=== PATIENT | male | born 1975 | race Caucasian/White ===

== ENCOUNTER 2018-03-28 09:13 | Inpatient (IN) | payer OTHER ==
[2018-03-28 09:33] VITALS: BMI 48.7
--- NOTE | 2018-03-28 10:20 | HP ---
COWS - Scale Resting Pulse: 1= [place] 81-100 Sweatin= Chills/Flushing Restless Observation: 3= Extraneous Movement Pupil Size: 0= Normal to Room Light Bone or Joint Aches: 1= Mild Discomfort Runny Nose/ Eye Tearin= Nasal Congestion GI Upset > 30mins: 1= Stomach Cramp Tremor Observation: 2= Slight Tremor Visible Yawning Observation: 1= 1-2x During Session Anxiety or Irritability: 2=Irritable/Anxious Goose Flesh Skin: 0=Smooth Skin COWS Score: 13 Admission ROS BHS - HPI Chief Complaint: I'm sick, I'm feeling crazy, I feel like I'm burning up inside, it's from the drugs, I need help, I really want to change, I was doing good on the Vivitrol Allergies/Adverse Reactions: Allergies Allergy/AdvReac Type Severity Reaction Status Date / Time No Known Allergies Allergy Verified 03/28/18 10:13 History of Present Illness: 42 yo gentleman here for detox from opiates - gives a long history of opiate use - tried methadone (5 years ago) and suboxone program (three years ago) but did not like them. Was started on Vivitrol early this year and was doing well on it - had a job - but there were scheduling issues and he missed a dose, relapsed and overdosed. He wishes to go back to Vivitrol after detox and rehab. Exam Limitations: Clinical Condition - Ebola screening Have you traveled outside of the country in the last 21 days: No (N) Have you had contact with anyone from an Ebola affected area: No Have you been sick,other than usual withdrawal symptoms: No Do you have a fever: No - Review of Systems Constitutional: Loss of Appetite, Changes in sleep, Weakness EENT: reports: Blurred Vision, Nose Congestion Respiratory: reports: SOB with Exertion, Wheezing Cardiac: reports: No Symptoms Reported GI: reports: Nausea, Poor Appetite : reports: No Symptoms Reported Musculoskeletal: reports: Back Pain, Muscle Pain Integumentary: reports: No Symptoms Reported Neuro: reports: Headache, Tremors Endocrine: reports: No Symptoms Reported Hematology: reports: No Symptoms Reported Psychiatric: reports: Judgement Intact, Mood/Affect Appropiate, Anxious Other Systems: Reviewed and Negative Patient History - Patient Medical History Hx Asthma: Yes Hx Chronic Obstructive Pulmonary Disease (COPD): No Hx Cancer: No Hx Cardiac Disorders: No Hx Congestive Heart Failure: No Hx Hypertension: Yes (no meds ) Hx Hypercholesterolemia: No HX Cerebrovascular Accident: No Hx Seizures: No Hx Diabetes: Yes (prediaabetes) Hx Gastrointestinal Disorders: No Hx Liver Disease: No Hx Genitourinary Disorders: No Hx Sexually Transmitted Disorders: No Hx Renal Disease (ESRD): No Hx Thyroid Disease: No Hx Human Immunodeficiency Virus (HIV): No Hx Hepatitis C: No Hx Depression: Yes (PTSD, hospitalized a year ago [facility]) Hx Suicide Attempt: No Hx Bipolar Disorder: Yes Hx Schizophrenia: No - Patient Surgical History Past Surgical History: Yes Hx Cataract Extraction: Yes (2013 bilateral) Hx Appendectomy: Yes (as child) - PPD History Previous Implant?: Yes Documented Results: Negative w/o proof Implanted On Prior [facility] Admission?: No PPD to be Administered?: Yes - Reproductive History Patient is a Female of Child Bearing Age (11 -55 yrs old): No (male) - Smoking Cessation Smoking history: Current some day smoker Have you smoked in the past 12 months: Yes Aproximately how many cigarettes per day: 5 Initiated information on smoking cessation: Yes 'Breaking Loose' booklet given: 03/28/18 (give on floor) - Substance & Tx. History Hx Alcohol Use: No Hx Substance Use: Yes Substance Use Type: Heroin Hx Substance Use Treatment: Yes (vivitrol, years ago on methadone, yrs ago on suboxone program, detox, rehab) - Substances Abused heroin Route: Inhalation Frequency: Daily Amount used: 10 bags Age of first use: 17 Date of Last Use: 03/27/18 Family Disease History - Family Disease History Family Disease History: [place]: Mother (, cancer ovarian), Other: Father ( , killed, etoh/drugs), Mother, Brother (two - living - ), Sister (six - one with asthma), Son (one age 20 - healthy) Admission Physical Exam BHS - Vital Signs Vital Signs: Vital Signs - 24 hr 03/28/18 09:31 Temperature 97.9 F Pulse Rate 84 Respiratory 19 Rate Blood Pressure 143/95 - Physical General Appearance: Yes: Nourished, Appropriately Dressed, Mild Distress, Obese , Tremorous, Anxious HEENTM: Yes: EOMI, Hearing grossly Normal, Normocephalic, Normal Voice, Pharynx Normal Respiratory: Yes: No Respiratory Distress, Wheezing Neck: Yes: No masses,lesions,Nodules, Supple Breast: Yes: Breast Exam Deferred Cardiology: Yes: Regular Rhythm, Regular Rate Abdominal: Yes: Soft, Protuberent Genitourinary: Yes: Within Normal Limits Back: Yes: Normal Inspection Musculoskeletal: Yes: full range of Motion, Gait Steady, Back pain, Muscle Pain Extremities: Yes: Within Normal Limits Neurological: Yes: Alert, Motor Strength 5/5, Normal Mood/Affect, Normal Response Integumentary: Yes: Normal Color, Warm Lymphatic: Yes: Within Normal Limits - Addiitonal Findings: QTG=384 - Diagnostic (1) Opioid dependence with withdrawal Current Visit: Yes Status: Chronic (2) Morbid obesity with BMI of 45.0-49.9, adult Current Visit: Yes Status: Chronic (3) Asthma Current Visit: Yes Status: Chronic Qualifiers: Asthma severity: moderate Asthma persistence: persistent Asthma complication type: uncomplicated Qualified Code(s): J45.40 - Moderate persistent asthma, uncomplicated (4) Prediabetes Current Visit: Yes Status: Chronic Cleared for Admission [facility] - Detox or Rehab [facility] Level of Care: Medically Managed Detox Regimen/Protocol: Methadone [facility] Breath Alcohol Content Breath Alcohol Content: 0 Urine Drug Screen - Results Drug Screen Negative: No Urine Drug Screen Results: OPI-Opiates
[2018-03-28] MEDS ORDERED: MAGNESIUM HYDROX 2400MG/30ML ORAL SUSPENSION 30 ML CUP PO PRN (10:28)
[2018-03-28] MEDS ORDERED: P-EPHED 60MG/TRIPROLIDI 2.5MG TABLET PO PRN (10:28)
[2018-03-28] MEDS ORDERED: MAGNESIUM CITRATE 300 ML BOTTLE PO PRN (10:28)
[2018-03-28] MEDS ORDERED: guaiFENesin/D-METHORPHAN HB 10 ML UNIT-DOSE CUPS PO PRN (10:28)
[2018-03-28] MEDS ORDERED: ACETAMINOPHEN 325 MG TABLET (FP) PO PRN (10:28)
[2018-03-28] MEDS ORDERED: IBUPROFEN 400 MG TABLET (FP) PO PRN (10:28)
[2018-03-28] MEDS ORDERED: MAG HYDROX/AL HYDROX/SIMETH 30 ML UNIT-DOSE CUP PO PRN (10:28)
[2018-03-28] MEDS ORDERED: MENTHOL/PHENOL 1 EACH UD MM PRN (10:28)
[2018-03-28] MEDS ORDERED: METHADONE HCL 10 MG TABLET (FOR DETOX USE ONLY) PO ONE ×2 (12:00→23:00)
[2018-03-28] MEDS: diazePAM 5 MG TABLET PO PRN ×2 (12:02→21:31)
[2018-03-28] MEDS: BUDESONIDE/FORMETEROL FUMARATE 160/4.5 mcg INHALER IH SCH ×2 (12:05→21:36)
[2018-03-28] MEDS: THIAMINE HCL 100 MG TABLET (FP) PO SCH (21:31)
[2018-03-28] MEDS: ALBUTEROL SO4 8 GM HFA INHALER IH PRN (21:35)
[2018-03-28] MEDS ORDERED: MELATONIN 5 MG TABLETS PO PRN (22:00)
[2018-03-28] MEDS: MONTELUKAST NA 10 MG TABLET PO SCH (22:06)
[2018-03-28] MEDS: metFORMIN HCL 500 MG TABLET (FP) PO SCH (22:07)
[2018-03-28 22:42] LABS: URINE APPEARANCE CLEAR; URINE BILIRUBIN NEGATIVE (<2.0 mg/dL); URINE COLOR LTYELLOW; URINE GLUCOSE (UA) NEGATIVE (NEGATIVE); URINE KETONE NEGATIVE (NEGATIVE); URINE LEUK ESTERASE NEGATIVE (NEGATIVE); URINE NITRITE NEGATIVE (NEGATIVE); URINE PROTEIN NEGATIVE (NEGATIVE); URINE UROBILINOGEN NEGATIVE mg/dL (0.2-1.0)
[2018-03-29] MEDS ORDERED: METHADONE HCL 10 MG TABLET (FOR DETOX USE ONLY) PO ONE (10:00)
[2018-03-29] MEDS ORDERED: SODIUM CHLORIDE NASAL SPRAY 44 ML BOTTLE NS PRN (10:01)
[2018-03-29] MEDS ORDERED: MINERAL OIL/PETROLAT/WATER TOPICAL CREAM 113 GM JAR TP PRN (10:01)
--- NOTE | 2018-03-29 10:03 | PN ---
S COWS - Scale Resting Pulse: 0= [place] 80 or Below Sweatin= Chills/Flushing Restless Observation: 1= Difficult to Sit Still Pupil Size: 1= Pupils >than Normal Bone or Joint Aches: 1= Mild Discomfort Runny Nose/ Eye Tearin= Nasal Congestion GI Upset > 30mins: 2= Nausea/Diarrhea Tremor Observation of Outstretched Hands: 1= Tremor [place], Not Seen Yawning Observation: 1= 1-2x During Session Anxiety or Irritability: 1=Feels Anxious/Irritable Goose Flesh Skin: 3=Piloerection COWS Score: 13 BHS Progress Note (SOAP) Subjective: sweat tremor anxiety restlessness joints pain congested nasal passage diarrhea Objective: 03/29/18 10:04 Vital Signs Temperature 98.1 F 03/29/18 09:29 Pulse Rate 57 L 03/29/18 09:29 Respiratory Rate 18 03/29/18 09:29 Blood Pressure 134/98 03/29/18 09:29 O2 Sat by Pulse Oximetry (%) Laboratory Last Values POC Glucometer 150 UNITS (80-120) 03/28/18 11:28 Urine Color Ltyellow 03/28/18 22:30 Urine Appearance Clear 03/28/18 22:30 Urine pH 5.0 (5.0-8.0) 03/28/18 22:30 Ur Specific [place] 1.016 (1.010-1.035) 03/28/18 22:30 Urine Protein Negative (NEGATIVE) 03/28/18 22:30 Urine Glucose (UA) Negative (NEGATIVE) 03/28/18 22:30 Urine Ketones Negative (NEGATIVE) 03/28/18 22:30 Urine Blood Negative (NEGATIVE) 03/28/18 22:30 Urine Nitrite Negative (NEGATIVE) 03/28/18 22:30 Urine Bilirubin Negative (<2.0 mg/dL) 03/28/18 22:30 Urine Urobilinogen Negative mg/dL (0.2-1.0) 03/28/18 22:30 Ur Leukocyte Esterase Negative (NEGATIVE) 03/28/18 22:30 lab noted Assessment: 03/29/18 10:04 withdrawal sx Plan: continue detox
[2018-03-29] MEDS ORDERED: ONDANSETRON *ODT* 4 MG TABLET SL ONE (10:05)
[2018-03-29 10:29] LABS: HEMATOCRIT 36.6 % (35.4-49); HEMOGLOBIN 11.3 GM/dL (11.7-16.9); MCH 24.9 pg (25.7-33.7); MCHC 30.9 g/dl (32.0-35.9); MEAN CELL VOLUME 80.7 fl (80-96); MEAN PLT VOLUME 10.2 fl (7.5-11.1); PLATELET COUNT 164 K/MM3 (134-434); RBC 4.53 M/mm3 (4.00-5.60); RDW 16.2 % (11.9-15.9); WHITE BLOOD COUNT 11.9 K/mm3 (4.0-10.0)
[2018-03-29] MEDS: metFORMIN HCL 500 MG TABLET (FP) PO SCH ×2 (10:44→17:10)
[2018-03-29] MEDS: diazePAM 5 MG TABLET PO PRN ×2 (10:44→21:50)
[2018-03-29] MEDS: BUDESONIDE/FORMETEROL FUMARATE 160/4.5 mcg INHALER IH SCH ×2 (10:45→22:12)
[2018-03-29] MEDS: PRENATAL VITAMINS W/ FOLIC ACID TABLET (FP) PO SCH (10:45)
[2018-03-29 10:51] LABS: ALBUMIN 3.7 g/dl (3.4-5.0); ALK PHOS 70 U/L (45-117); ANION GAP 13 MMOL/L (8-16); BILIRUBIN,TOTAL 0.4 mg/dL (0.2-1); BLOOD UREA NITROGEN 17 mg/dL (7-18); CHLORIDE 104 mmol/L (98-107); CO2 23 mmol/L (21-32); CREATININE 1.9 mg/dL (0.55-1.3); GLUCOSE,RANDOM 140 mg/dL (74-106); POTASSIUM 4.4 mmol/L (3.5-5.1); SGOT/AST 19 U/L (15-37); SGPT/ALT 23 U/L (13-61); SODIUM 139 mmol/L (136-145); TOT PROT 7.1 g/dl (6.4-8.2)
--- NOTE | 2018-03-29 13:47 | EKG ---
Test Reason : Blood Pressure : / mmHG Vent. Rate : 069 BPM Atrial Rate : 069 BPM P-R Int : 152 ms QRS Dur : 092 ms QT Int : 416 ms P-R-T Axes : 039 007 -03 degrees QTc Int : 445 ms NORMAL SINUS RHYTHM WITH SINUS ARRHYTHMIA NORMAL ECG NO PREVIOUS ECGS AVAILABLE Confirmed by EDUARDO VEGA MD ([id number]) on 03/29/2018 1:47:08 PM Referred By: Confirmed By:EDUARDO VEGA MD
[2018-03-29] MEDS: LOPERAMIDE HCL 2 MG CAPSULE PO PRN (20:20)
[2018-03-29] MEDS ORDERED: TRIMETHOBENZAMIDE HCL 200MG/2ML INJ IM PRN (21:24)
[2018-03-29] MEDS: MONTELUKAST NA 10 MG TABLET PO SCH (22:12)
[2018-03-29] MEDS: THIAMINE HCL 100 MG TABLET (FP) PO SCH (22:12)
[2018-03-30] MEDS: metFORMIN HCL 500 MG TABLET (FP) PO SCH ×2 (08:01→17:36)
[2018-03-30] MEDS: LOPERAMIDE HCL 2 MG CAPSULE PO PRN (08:01)
[2018-03-30] MEDS ORDERED: METHADONE HCL 5 MG TABLET (FOR DETOX USE ONLY) PO ONE (10:00)
[2018-03-30] MEDS: PRENATAL VITAMINS W/ FOLIC ACID TABLET (FP) PO SCH (10:15)
[2018-03-30] MEDS: BUDESONIDE/FORMETEROL FUMARATE 160/4.5 mcg INHALER IH SCH ×2 (10:16→23:25)
--- NOTE | 2018-03-30 11:32 | PN ---
BHS COWS - Scale Resting Pulse: 0= [place] 80 or Below Sweatin=Flushed/Facial Moisture Restless Observation: 1= Difficult to Sit Still Pupil Size: 0= Normal to Room Light Bone or Joint Aches: 2= Severe Diffuse Aches Runny Nose/ Eye Tearin= None GI Upset > 30mins: 3= Vomiting/Diarrhea Tremor Observation of Outstretched Hands: 2= Slight Tremor Visible Yawning Observation: 0= None Anxiety or Irritability: 2=Irritable/Anxious Goose Flesh Skin: 0=Smooth Skin COWS Score: 12 S Progress Note (SOAP) Subjective: PATIENT C/O VOMITING/DIARRHEA, ANXIETY, RESTLESSNESS, SHAKES AND SWEATING. Objective: 03/30/18 11:28 Vital Signs Temperature 97.7 F 03/30/18 09:09 Pulse Rate 59 L 03/30/18 09:09 Respiratory Rate 18 03/30/18 09:09 Blood Pressure 127/72 03/30/18 09:09 O2 Sat by Pulse Oximetry (%) Laboratory Tests 03/28/18 03/28/18 03/29/18 11:28 22:30 05:35 WBC 11.9 H RBC 4.53 Hgb 11.3 L Hct 36.6 MCV 80.7 MCH 24.9 L MCHC 30.9 L RDW 16.2 H Plt Count 164 MPV 10.2 Sodium Potassium Chloride Carbon Dioxide Anion Gap BUN Creatinine Creat Clearance w eGFR POC Glucometer 150 Random Glucose Calcium Total Bilirubin AST ALT Alkaline Phosphatase Total Protein Albumin Urine Color Ltyellow Urine Appearance Clear Urine pH 5.0 Ur Specific [place] 1.016 Urine Protein Negative Urine Glucose (UA) Negative Urine Ketones Negative Urine Blood Negative Urine Nitrite Negative Urine Bilirubin Negative Urine Urobilinogen Negative Ur Leukocyte Esterase Negative RPR Titer 03/29/18 03/29/18 03/30/18 05:35 05:35 07:50 WBC RBC Hgb Hct MCV MCH MCHC RDW Plt Count MPV Sodium 139 Potassium 4.4 Chloride 104 Carbon Dioxide 23 Anion Gap 13 BUN 17 Creatinine 1.9 H Creat Clearance w eGFR 38.88 POC Glucometer 90 Random Glucose 140 H Calcium 8.0 L Total Bilirubin 0.4 AST 19 ALT 23 Alkaline Phosphatase 70 Total Protein 7.1 Albumin 3.7 Urine Color Urine Appearance Urine pH Ur Specific [place] Urine Protein Urine Glucose (UA) Urine Ketones Urine Blood Urine Nitrite Urine Bilirubin Urine Urobilinogen Ur Leukocyte Esterase RPR Titer Nonreactive PE: SKIN WARM, + FACIAL MOISTURE ALERT AND ORIENTED X 3 ANXIOUS, RESTLESS EXT FULL ROM, + TREMORS AMB AD ANIKA Assessment: 03/30/18 11:29 WITHDRAWAL SX Plan: CONTINUE DETOX ENCOURAGE ORAL FLUIDS TIGAN IM PRN FOR VOMITING IMMODIUM PRN FOR DIARRHEA CONTINUE TO MONITOR CLINICALLY
[2018-03-30] MEDS: MONTELUKAST NA 10 MG TABLET PO SCH (23:25)
[2018-03-30] MEDS: THIAMINE HCL 100 MG TABLET (FP) PO SCH (23:25)
[2018-03-31] MEDS: metFORMIN HCL 500 MG TABLET (FP) PO SCH ×2 (07:33→16:33)
[2018-03-31] MEDS ORDERED: METHADONE HCL 5 MG TABLET (FOR DETOX USE ONLY) PO ONE (10:00)
[2018-03-31] MEDS: PRENATAL VITAMINS W/ FOLIC ACID TABLET (FP) PO SCH (10:09)
[2018-03-31] MEDS: BUDESONIDE/FORMETEROL FUMARATE 160/4.5 mcg INHALER IH SCH ×2 (10:10→22:27)
--- NOTE | 2018-03-31 10:42 | PN ---
BHS Progress Note (SOAP) Subjective: headache body aches sweats irritable Objective: 03/31/18 10:41 Vital Signs Temperature 96.9 F L 03/31/18 09:24 Pulse Rate 89 03/31/18 09:24 Respiratory Rate 18 03/31/18 09:24 Blood Pressure 127/70 03/31/18 09:24 O2 Sat by Pulse Oximetry (%) [id number] ambulating no acute distress Assessment: 03/31/18 10:42 withdrawal sx Plan: continue detox increase fluids
[2018-03-31] MEDS: ALBUTEROL SO4 8 GM HFA INHALER IH PRN ×2 (11:51→16:34)
[2018-03-31] MEDS: THIAMINE HCL 100 MG TABLET (FP) PO SCH (22:27)
[2018-03-31] MEDS: MONTELUKAST NA 10 MG TABLET PO SCH (22:27)
[2018-04-01] MEDS: metFORMIN HCL 500 MG TABLET (FP) PO SCH (06:49)
--- NOTE | 2018-04-01 09:13 | DS ---
[facility] Detox Discharge Summary Admission Date: 03/28/18 Discharge Date: 04/01/18 - History Present History: Opioid Dependence - Physical Exam Results Vital Signs: Vital Signs Temperature 97.7 F 04/01/18 06:00 Pulse Rate 57 L 04/01/18 06:00 Respiratory Rate 20 04/01/18 06:00 Blood Pressure 103/55 L 04/01/18 06:00 O2 Sat by Pulse Oximetry (%) - Treatment Hospital Course: Detox Protocol Followed, Detoxed Safely, Responded well, Discharged Condition Good, Rehab Referral Accepted - Medication Discharge Medications: Ambulatory Orders Albuterol Sulfate Inhaler - [Ventolin Hfa Inhaler -] 2 inh PO Q4H PRN 03/28/18 Budesonide/Formeterol Fumarate [SYMBICORT 160/4.5mcg -] 1 inh PO BID 03/28/18 Metformin HCl [Glucophage] 500 mg PO BID 03/28/18 Montelukast Na [Singulair -] 10 mg PO HS 03/28/18 - Diagnosis (1) Opioid dependence with withdrawal Current Visit: Yes Status: Chronic (2) Asthma Current Visit: Yes Status: Chronic Qualifiers: Asthma severity: moderate Asthma persistence: persistent Asthma complication type: uncomplicated Qualified Code(s): J45.40 - Moderate persistent asthma, uncomplicated (3) Morbid obesity with BMI of 45.0-49.9, adult Current Visit: Yes Status: Chronic (4) Prediabetes Current Visit: Yes Status: Chronic - AMA Did Patient Leave Against Medical Advice: No (rehab to [facility])
[2018-04-01 09:14] VITALS: BP 130/66; PULSE 95; TEMP 96.1
[2018-04-01] MEDS ORDERED: METHADONE HCL 10 MG TABLET (FOR DETOX USE ONLY) PO ONE (10:00)
[2018-04-01] MEDS: PRENATAL VITAMINS W/ FOLIC ACID TABLET (FP) PO SCH (10:15)
[2018-04-01] MEDS: BUDESONIDE/FORMETEROL FUMARATE 160/4.5 mcg INHALER IH SCH (10:16)
[2018-04-02] MEDS ORDERED: METHADONE HCL 5 MG TABLET (FOR DETOX USE ONLY) PO ONE (06:00)
== END 2018-04-01 12:14 | disposition other institution (70) | DRG 773 ==
LOC: YASAS 09:13 → Y6N 11:12 → UNDODISIN 04-01 09:27
PROVIDERS: ADMIT Neuromusculoskeletal Medicine & OMM; ATTEND Neuromusculoskeletal Medicine & OMM
PROC: HZ2ZZZZ Detoxification Services for Substance Abuse Treatment (ICD-10-PCS; principal; 2018-03-28)
DX: F11.23 Opioid dependence with withdrawal (principal); F17.210 Nicotine dependence, cigarettes, uncomplicated; I10 Essential (primary) hypertension; R73.03 Prediabetes; J45.40 Moderate persistent asthma, uncomplicated; E66.01 Morbid (severe) obesity due to excess calories; Z68.42 Body mass index [BMI] 45.0-49.9, adult
CPT/HCPCS: 36415; 80053; 81003; 82962; 85027; 86593; 93005; 93010; Q0162

== ENCOUNTER 2018-04-01 12:22 | Inpatient (IN) | payer OTHER ==
[2018-04-01] MEDS ORDERED: ACETAMINOPHEN 325 MG TABLET (FP) PO PRN (12:45)
[2018-04-01] MEDS ORDERED: MAGNESIUM CITRATE 300 ML BOTTLE PO PRN (12:45)
[2018-04-01] MEDS ORDERED: hydrOXYzine PAMOATE 50 MG CAPSULE (FP) PO PRN (12:45)
[2018-04-01] MEDS ORDERED: IBUPROFEN 400 MG TABLET (FP) PO PRN (12:45)
[2018-04-01] MEDS ORDERED: guaiFENesin/D-METHORPHAN HB 10 ML UNIT-DOSE CUPS PO PRN (12:45)
[2018-04-01] MEDS ORDERED: MENTHOL/PHENOL 1 EACH UD MM PRN (12:45)
[2018-04-01] MEDS ORDERED: LOPERAMIDE HCL 2 MG CAPSULE PO PRN (12:45)
[2018-04-01] MEDS ORDERED: MAG HYDROX/AL HYDROX/SIMETH 30 ML UNIT-DOSE CUP PO PRN (12:45)
[2018-04-01] MEDS ORDERED: MAGNESIUM HYDROX 2400MG/30ML ORAL SUSPENSION 30 ML CUP PO PRN (12:45)
[2018-04-01] MEDS ORDERED: P-EPHED 60MG/TRIPROLIDI 2.5MG TABLET PO PRN (12:45)
[2018-04-01] MEDS ORDERED: NICOTINE POLACRILEX 4 MG GUM BUC PRN (12:45)
--- NOTE | 2018-04-01 12:45 | HP ---
STACEY MOORE Rehab Assess/Revision - Admission History Admitted to Rehab from[facility] - Findings Detox History & Physical reviewed: Yes Concur with findings: Yes Inpatient Rehab Admission - Initial Determination Are CD services needed?: Yes Free of communicable disease: Yes Not in need of hospitalization: Yes - Rehab Admission Criteria Previous failed treatment: Yes Comorbidities: Yes
[2018-04-01] MEDS: ALBUTEROL SO4 8 GM HFA INHALER IH PRN ×2 (13:30→20:49)
[2018-04-01] MEDS: SODIUM CHLORIDE NASAL SPRAY 44 ML BOTTLE NS PRN (13:30)
--- NOTE | 2018-04-01 14:53 | HP ---
Psychiatrist Admission - Data Date of interview: 04/01/18 Admission source: [address] [place] [address] detox Identifying data: This is the first admission to [address] [place] [address] for this 44 years old H father of 19 yo son,resides with family,lost his job (constration) recently. Medical History: Obesity,[place] diabetes,BA,Cataracts removal. Psychiatric History: denies psychiatric history,no suicidal attempts reported. Physical/Sexual Abuse/Trauma History: Patient denies. Allergies/Adverse Reactions: Allergies Allergy/AdvReac Type Severity Reaction Status Date / Time No Known Allergies Allergy Verified 03/28/18 10:13 Concur with the findings of this exam: Yes - Substance Abuse/Tx History Hx Alcohol Use: Yes (drinking socially) Hx Substance Use: Yes (heroin since 18 yo,sniffing,9 bags daily) Substance Use Type: Alcohol, Heroin Hx Substance Use Treatment: Yes (completed inpatient rehab at [facility] in 2017) Mental Status Exam - Mental Status Exam Alert and Oriented to: Time, Place, Person Cognitive Function: Grossly Intact Patient Appearance: Well Groomed Mood: Euthymic Affect: Appropriate, Mood Congruent Patient Behavior: Cooperative Speech Pattern: Clear Voice Loudness: Normal Thought Process: Goal Oriented Thought Disorder: Not Present Hallucinations: Denies Suicidal Ideation: Denies Homicidal Ideation: Denies Insight/Judgement: Fair Sleep: Fair Appetite: Good Muscle strength/Tone: Normal Gait/Station: Normal Psychiatric Findings - Problem List ([place] 1, 2,3) (1) Asthma Current Visit: Yes Status: Chronic Qualifiers: Asthma severity: mild (2) Opioid dependence with withdrawal Current Visit: Yes Status: Chronic (3) Morbid obesity with BMI of 45.0-49.9, adult Current Visit: Yes Status: Chronic (4) Prediabetes Current Visit: Yes Status: Chronic (5) Bronchial asthma Current Visit: Yes Status: Chronic - Initial Treatment Plan Initial Treatment Plan: Will monitor progress.
[2018-04-01] MEDS: metFORMIN HCL 500 MG TABLET (FP) PO SCH (17:09)
[2018-04-01] MEDS: MELATONIN 5 MG TABLETS PO PRN (21:38)
[2018-04-01] MEDS: MONTELUKAST NA 10 MG TABLET PO SCH (21:38)
[2018-04-01] MEDS: THIAMINE HCL 100 MG TABLET (FP) PO SCH (21:38)
[2018-04-01] MEDS: BUDESONIDE/FORMETEROL FUMARATE 160/4.5 mcg INHALER IH SCH (22:17)
[2018-04-02] MEDS: metFORMIN HCL 500 MG TABLET (FP) PO SCH ×2 (06:26→16:40)
[2018-04-02] MEDS: ALBUTEROL SO4 8 GM HFA INHALER IH PRN (06:26)
[2018-04-02] MEDS: BUDESONIDE/FORMETEROL FUMARATE 160/4.5 mcg INHALER IH SCH ×2 (10:50→22:14)
[2018-04-02] MEDS: NICOTINE 21 MG/24 HOURS TOPICAL PATCH TD SCH (10:50)
[2018-04-02] MEDS: PRENATAL VITAMINS W/ FOLIC ACID TABLET (FP) PO SCH (10:50)
[2018-04-02] MEDS: THIAMINE HCL 100 MG TABLET (FP) PO SCH (21:41)
[2018-04-02] MEDS: MONTELUKAST NA 10 MG TABLET PO SCH (21:41)
[2018-04-02] MEDS: MELATONIN 5 MG TABLETS PO PRN (21:41)
[2018-04-03] MEDS: ALBUTEROL SO4 8 GM HFA INHALER IH PRN ×4 (06:33→20:07)
[2018-04-03] MEDS: metFORMIN HCL 500 MG TABLET (FP) PO SCH ×2 (07:06→16:57)
[2018-04-03] MEDS: NICOTINE 21 MG/24 HOURS TOPICAL PATCH TD SCH (10:26)
[2018-04-03] MEDS: BUDESONIDE/FORMETEROL FUMARATE 160/4.5 mcg INHALER IH SCH ×2 (10:27→21:48)
[2018-04-03] MEDS: PRENATAL VITAMINS W/ FOLIC ACID TABLET (FP) PO SCH (10:27)
[2018-04-03] MEDS: ALBUTEROL SO4 0.083% IH SOL 2.5 MG/3 ML VIAL.NEB. NEB PRN (20:37)
[2018-04-03] MEDS: THIAMINE HCL 100 MG TABLET (FP) PO SCH (21:48)
[2018-04-03] MEDS: MONTELUKAST NA 10 MG TABLET PO SCH (21:48)
[2018-04-04] MEDS: metFORMIN HCL 500 MG TABLET (FP) PO SCH ×2 (06:41→16:46)
[2018-04-04] MEDS: NICOTINE 21 MG/24 HOURS TOPICAL PATCH TD SCH (09:54)
[2018-04-04] MEDS: BUDESONIDE/FORMETEROL FUMARATE 160/4.5 mcg INHALER IH SCH ×2 (09:54→21:34)
[2018-04-04] MEDS: PRENATAL VITAMINS W/ FOLIC ACID TABLET (FP) PO SCH (09:54)
[2018-04-04] MEDS: MONTELUKAST NA 10 MG TABLET PO SCH (21:34)
[2018-04-04] MEDS: THIAMINE HCL 100 MG TABLET (FP) PO SCH (21:34)
[2018-04-05] MEDS: metFORMIN HCL 500 MG TABLET (FP) PO SCH ×2 (06:22→16:45)
[2018-04-05] MEDS: NICOTINE 21 MG/24 HOURS TOPICAL PATCH TD SCH (09:59)
[2018-04-05] MEDS: BUDESONIDE/FORMETEROL FUMARATE 160/4.5 mcg INHALER IH SCH ×2 (10:00→21:42)
[2018-04-05] MEDS: SODIUM CHLORIDE NASAL SPRAY 44 ML BOTTLE NS PRN (10:00)
[2018-04-05] MEDS: PRENATAL VITAMINS W/ FOLIC ACID TABLET (FP) PO SCH (10:01)
--- NOTE | 2018-04-05 11:52 | PN ---
S Progress Note Note: T/c from RISHI Verdin about pt requesting that NRTs be discontinued as he does not smoke. Per detox admission hx however, pt endorsed smoking 5 cig/day. Pt offered Nicotine gum 2mg instead; he declined stating he does not need it as he has not smoked in 5 yrs. NRTs subsequently stopped.
[2018-04-05] MEDS: THIAMINE HCL 100 MG TABLET (FP) PO SCH (21:42)
[2018-04-05] MEDS: MONTELUKAST NA 10 MG TABLET PO SCH (21:42)
[2018-04-06] MEDS: metFORMIN HCL 500 MG TABLET (FP) PO SCH ×2 (06:23→16:38)
[2018-04-06] MEDS: PRENATAL VITAMINS W/ FOLIC ACID TABLET (FP) PO SCH (10:57)
[2018-04-06] MEDS: BUDESONIDE/FORMETEROL FUMARATE 160/4.5 mcg INHALER IH SCH ×2 (10:59→21:34)
[2018-04-06] MEDS: SODIUM CHLORIDE NASAL SPRAY 44 ML BOTTLE NS PRN (10:59)
[2018-04-06] MEDS: THIAMINE HCL 100 MG TABLET (FP) PO SCH (21:34)
[2018-04-06] MEDS: MONTELUKAST NA 10 MG TABLET PO SCH (21:34)
[2018-04-07] MEDS: metFORMIN HCL 500 MG TABLET (FP) PO SCH ×2 (07:43→17:30)
[2018-04-07] MEDS ORDERED: ONDANSETRON *ODT* 4 MG TABLET SL PRN (10:43)
--- NOTE | 2018-04-07 10:44 | PN ---
BHS Progress Note Note: C/O NAUSEA AND VOMITING. ALERT O X 3. OOB WITH STEADY GAIT. Vital Signs 04/07/18 04/07/18 03:24 06:43 Temperature 97.4 F L Pulse Rate 75 Respiratory 18 19 Rate Blood Pressure 121/70 Laboratory Tests 04/01/18 04/02/18 04/02/18 17:08 06:25 16:39 POC Glucometer 93 103 110 04/03/18 04/03/18 04/04/18 06:25 16:57 06:40 POC Glucometer 85 121 88 04/04/18 04/05/18 04/05/18 16:45 06:22 16:45 POC Glucometer 112 101 117 04/06/18 04/06/18 06:23 16:38 POC Glucometer 99 107 PLAN:LUIGI DIRECTED
[2018-04-07] MEDS: BUDESONIDE/FORMETEROL FUMARATE 160/4.5 mcg INHALER IH SCH ×2 (10:57→21:40)
[2018-04-07] MEDS: PRENATAL VITAMINS W/ FOLIC ACID TABLET (FP) PO SCH (10:57)
[2018-04-07] MEDS: MONTELUKAST NA 10 MG TABLET PO SCH (21:40)
[2018-04-07] MEDS: MELATONIN 5 MG TABLETS PO PRN (21:40)
[2018-04-07] MEDS: THIAMINE HCL 100 MG TABLET (FP) PO SCH (21:40)
[2018-04-07] MEDS: ALBUTEROL SO4 8 GM HFA INHALER IH PRN (21:42)
[2018-04-08] MEDS: metFORMIN HCL 500 MG TABLET (FP) PO SCH ×2 (06:22→16:58)
[2018-04-08] MEDS: PRENATAL VITAMINS W/ FOLIC ACID TABLET (FP) PO SCH (10:44)
[2018-04-08] MEDS: BUDESONIDE/FORMETEROL FUMARATE 160/4.5 mcg INHALER IH SCH ×2 (10:44→21:27)
[2018-04-08] MEDS: ALBUTEROL SO4 0.083% IH SOL 2.5 MG/3 ML VIAL.NEB. NEB PRN (10:47)
[2018-04-08] MEDS: THIAMINE HCL 100 MG TABLET (FP) PO SCH (21:27)
[2018-04-08] MEDS: MONTELUKAST NA 10 MG TABLET PO SCH (21:27)
[2018-04-08] MEDS: MELATONIN 5 MG TABLETS PO PRN (21:28)
[2018-04-09] MEDS: metFORMIN HCL 500 MG TABLET (FP) PO SCH ×2 (07:08→16:58)
[2018-04-09] MEDS: PRENATAL VITAMINS W/ FOLIC ACID TABLET (FP) PO SCH (10:10)
[2018-04-09] MEDS: BUDESONIDE/FORMETEROL FUMARATE 160/4.5 mcg INHALER IH SCH ×2 (10:11→21:42)
[2018-04-09] MEDS: THIAMINE HCL 100 MG TABLET (FP) PO SCH (21:42)
[2018-04-09] MEDS: MONTELUKAST NA 10 MG TABLET PO SCH (21:42)
[2018-04-10] MEDS: metFORMIN HCL 500 MG TABLET (FP) PO SCH ×2 (06:02→16:36)
[2018-04-10] MEDS: PRENATAL VITAMINS W/ FOLIC ACID TABLET (FP) PO SCH (10:17)
[2018-04-10] MEDS: BUDESONIDE/FORMETEROL FUMARATE 160/4.5 mcg INHALER IH SCH ×2 (10:18→21:38)
--- NOTE | 2018-04-10 12:08 | PN ---
S Progress Note Note: Pt states has toothache- was seen by dentist and was supposed to have root canal and cap placed. But pt was hospitalized before completing this treatment. O: Vital Signs - 24 hr 04/10/18 04/10/18 00:30 06:41 Temperature 97.4 F L Pulse Rate 71 Respiratory 18 18 Rate Blood Pressure 125/65 tooth- R molar- with cavity, no evidence for abscess or infection Plan for toothache: motrin 800mg TID for 4 doses. May add antibiotics if toothache worsens and if with other signs of infection
[2018-04-10] MEDS ORDERED: IBUPROFEN 400 MG TABLET (FP) PO SCH (12:15)
[2018-04-10] MEDS: IBUPROFEN 400 MG TABLET (FP) PO SCH ×2 (13:08→21:37)
[2018-04-10] MEDS: MONTELUKAST NA 10 MG TABLET PO SCH (21:36)
[2018-04-10] MEDS: THIAMINE HCL 100 MG TABLET (FP) PO SCH (21:36)
[2018-04-11] MEDS: metFORMIN HCL 500 MG TABLET (FP) PO SCH ×2 (06:14→16:48)
[2018-04-11] MEDS: BUDESONIDE/FORMETEROL FUMARATE 160/4.5 mcg INHALER IH SCH ×2 (10:29→22:36)
[2018-04-11] MEDS: PRENATAL VITAMINS W/ FOLIC ACID TABLET (FP) PO SCH (10:29)
[2018-04-11] MEDS: IBUPROFEN 400 MG TABLET (FP) PO SCH ×2 (10:31→22:36)
[2018-04-11] MEDS: MONTELUKAST NA 10 MG TABLET PO SCH (22:36)
[2018-04-11] MEDS: THIAMINE HCL 100 MG TABLET (FP) PO SCH (22:37)
[2018-04-12] MEDS: metFORMIN HCL 500 MG TABLET (FP) PO SCH ×2 (06:38→17:00)
[2018-04-12] MEDS: ALBUTEROL SO4 8 GM HFA INHALER IH PRN ×3 (06:39→21:44)
[2018-04-12] MEDS: PRENATAL VITAMINS W/ FOLIC ACID TABLET (FP) PO SCH (10:10)
[2018-04-12] MEDS: BUDESONIDE/FORMETEROL FUMARATE 160/4.5 mcg INHALER IH SCH ×2 (10:10→21:43)
[2018-04-12] MEDS: MONTELUKAST NA 10 MG TABLET PO SCH (21:43)
[2018-04-12] MEDS: THIAMINE HCL 100 MG TABLET (FP) PO SCH (21:43)
[2018-04-13] MEDS: metFORMIN HCL 500 MG TABLET (FP) PO SCH ×2 (06:09→16:34)
[2018-04-13] MEDS: BUDESONIDE/FORMETEROL FUMARATE 160/4.5 mcg INHALER IH SCH ×2 (10:14→21:58)
[2018-04-13] MEDS: PRENATAL VITAMINS W/ FOLIC ACID TABLET (FP) PO SCH (10:14)
[2018-04-13] MEDS: MONTELUKAST NA 10 MG TABLET PO SCH (21:58)
[2018-04-13] MEDS: THIAMINE HCL 100 MG TABLET (FP) PO SCH (21:58)
[2018-04-14] MEDS: metFORMIN HCL 500 MG TABLET (FP) PO SCH ×2 (06:21→16:39)
[2018-04-14] MEDS: BUDESONIDE/FORMETEROL FUMARATE 160/4.5 mcg INHALER IH SCH ×2 (10:41→22:29)
[2018-04-14] MEDS: PRENATAL VITAMINS W/ FOLIC ACID TABLET (FP) PO SCH (10:42)
[2018-04-14] MEDS: MONTELUKAST NA 10 MG TABLET PO SCH (21:39)
[2018-04-14] MEDS: THIAMINE HCL 100 MG TABLET (FP) PO SCH (21:39)
[2018-04-15] MEDS: metFORMIN HCL 500 MG TABLET (FP) PO SCH (06:17)
[2018-04-15 08:04] VITALS: BP 127/82; PULSE 76; TEMP 98.2
--- NOTE | 2018-04-15 08:41 | PN ---
Psychiatric Progress Note Vital Signs: Vital Signs Period Temp Pulse Resp BP Sys/Hall Pulse Ox Last 24 Hr 98.2 F 76-90 18-18 127-130/82-84 Date of Session: 04/15/18 Current Medications: Active Medications Generic Name Dose Route Start Last Admin Trade Name Freq PRN Reason Stop Dose Admin Acetaminophen 650 mg 04/01/18 12:45 04/10/18 10:17 Tylenol - PO 650 mg Q4H PRN Administration FEVER Al Hydroxide/Mg Hydroxide 30 ml 04/01/18 12:45 04/07/18 09:34 Mylanta Oral Suspension - PO 30 ml Q6H PRN Administration DYSPEPSIA Albuterol Sulfate 2 puff 04/01/18 12:46 04/12/18 21:44 Ventolin Hfa Inhaler - IH 2 puff Q4H PRN Administration ASTHMA Albuterol Sulfate 1 amp 04/03/18 20:22 04/08/18 10:47 Ventolin 0.083% Nebulizer Soln - NEB 1 amp Q4H PRN Administration SHORT OF BREATH/WHEEZING Budesonide/Formoterol Fumarate 1 puff 04/01/18 22:00 04/14/18 22:29 Symbicort 160/4.5mcg - IH Not Given BID ROBI Eucalyptus/Menthol/Phenol/Sorbitol 1 each 04/01/18 12:45 Cepastat Lozenge - MM Q4H PRN SORE THROAT Guaifenesin 10 ml 04/01/18 12:45 04/01/18 13:30 Robitussin Dm - PO 10 ml Q6H PRN Administration COUGH Hydroxyzine Pamoate 50 mg 04/01/18 12:45 Vistaril - PO Q4H PRN AGITATION Loperamide HCl 4 mg 04/01/18 12:45 Imodium - PO Q6H PRN DIARRHEA Magnesium Citrate 300 ml 04/01/18 12:45 Citroma - PO Q48H PRN CONSTIPATION Magnesium Hydroxide 30 ml 04/01/18 12:45 Milk Of Magnesia - PO DAILY PRN CONSTIPATION Melatonin 5 mg 04/01/18 22:00 04/08/18 21:28 Melatonin PO 5 mg HS PRN Administration INSOMNIA Metformin HCl 500 mg 04/01/18 16:30 04/15/18 06:17 Glucophage - PO 500 mg BID@0700,1630 ROBI Administration Montelukast Sodium 10 mg 04/01/18 22:00 04/14/18 21:39 Singulair - PO 10 mg HS ROBI Administration Ondansetron HCl 8 mg 04/07/18 10:43 04/13/18 10:15 Zofran Odt - SL 8 mg Q8H PRN Administration NAUSEA AND/OR VOMITING Multivit/Folic Acid/Iron 1 tab 04/02/18 10:00 04/14/18 10:42 Vitamins ([facility]) - PO 1 tab DAILY ROBI Administration Pseudoephedrine/Triprolidine 1 combo 04/01/18 12:45 04/01/18 13:30 Actifed - PO 1 combo TID PRN Administration NASAL CONGESTION Sodium Chloride 2 spray 04/01/18 14:16 04/06/18 10:59 [place] Nasal [place] - NS 2 spray TID PRN Administration NASAL CONGESTION Thiamine HCl 100 mg 04/01/18 22:00 04/14/18 21:39 Vitamin B1 - PO 100 mg HS ROBI Administration Current Side Effect: No Lab tests ordered: No Lab tests reviewed: Yes Provider note:: patient completed [facility] Psychiatric Treatment Plan - Problem List (1) Asthma Current Visit: Yes Qualifiers: Asthma severity: mild (2) Opioid dependence with withdrawal Current Visit: Yes (3) Morbid obesity with BMI of 45.0-49.9, adult Current Visit: Yes (4) Prediabetes Current Visit: Yes (5) Bronchial asthma Current Visit: Yes
== END 2018-04-15 10:10 | disposition home or self-care (01) | DRG 772 ==
LOC: YASAS 12:22 → Y5N 12:23
PROVIDERS: ADMIT Psychiatry & Neurology Psychiatry; ATTEND Psychiatry & Neurology Psychiatry
PROC: HZ42ZZZ Group Counseling for Substance Abuse Treatment, Cognitive-Behavioral (ICD-10-PCS; principal; 2018-04-01)
DX: F11.23 Opioid dependence with withdrawal (principal); J45.20 Mild intermittent asthma, uncomplicated; R73.03 Prediabetes; K08.89 Other specified disorders of teeth and supporting structures; R11.2 Nausea with vomiting, unspecified; E66.01 Morbid (severe) obesity due to excess calories; Z68.42 Body mass index [BMI] 45.0-49.9, adult
CPT/HCPCS: 82962; 94640; Q0162

== ENCOUNTER 2019-02-05 13:29 | Inpatient (IN) | payer OTHER ==
[2019-02-05 15:06] VITALS: BMI 48.1
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
[2019-02-05] MEDS ORDERED: ALBUTEROL SO4 8 GM HFA INHALER IH PRN (17:18)
[2019-02-05] MEDS ORDERED: NAPROXEN 500 MG TABLET (FP) PO PRN (17:18)
[2019-02-05] MEDS ORDERED: MELATONIN 5 MG TABLETS PO PRN (17:20)
[2019-02-05] MEDS ORDERED: hydrOXYzine PAMOATE 25 MG CAPSULE (FP) PO PRN (17:20)
[2019-02-05] MEDS ORDERED: MENTHOL/PHENOL 1 EACH UD MM PRN (17:20)
[2019-02-05] MEDS ORDERED: ALBUTEROL SO4 0.083% IH SOL 2.5 MG/3 ML VIAL.NEB. NEB PRN (17:20)
[2019-02-05] MEDS ORDERED: ACETAMINOPHEN 325 MG TABLET (FP) PO PRN ×2 (17:20)
[2019-02-05] MEDS ORDERED: cloNIDine HCL 0.1 MG TABLET PO PRN (17:22)
[2019-02-05] MEDS ORDERED: METHADONE HCL 10 MG TABLET (FOR DETOX USE ONLY) PO ONE (18:30)
[2019-02-05] MEDS: predniSONE 20 MG TABLET (UD) PO SCH (19:53)
[2019-02-05] MEDS: DOXYCYCLINE HYCLATE 100 MG TABLET PO SCH (19:55)
[2019-02-05] MEDS: MONTELUKAST NA 10 MG TABLET PO SCH (22:26)
[2019-02-05] MEDS: THIAMINE HCL 100 MG TABLET (FP) PO SCH (22:26)
[2019-02-05] MEDS: BUDESONIDE/FORMETEROL FUMARATE 160/4.5 mcg INHALER IH SCH (22:29)
[2019-02-06] MEDS: DOXYCYCLINE HYCLATE 100 MG TABLET PO SCH ×2 (05:46→17:01)
[2019-02-06] MEDS: clonazePAM 0.5 MG TABLET PO PRN ×2 (05:49→22:18)
[2019-02-06] MEDS ORDERED: METHADONE HCL 5 MG TABLET (FOR DETOX USE ONLY) PO ONE (10:00)
[2019-02-06] MEDS: predniSONE 20 MG TABLET (UD) PO SCH (10:35)
[2019-02-06] MEDS: BUDESONIDE/FORMETEROL FUMARATE 160/4.5 mcg INHALER IH SCH ×2 (10:36→22:16)
[2019-02-06 11:12] LABS: HEMATOCRIT 36.5 % (35.4-49); HEMOGLOBIN 11.9 GM/dL (11.7-16.9); MCH 26.3 pg (25.7-33.7); MCHC 32.6 g/dl (32.0-35.9); MEAN CELL VOLUME 80.7 fl (80-96); MEAN PLT VOLUME 9.6 fl (7.5-11.1); PLATELET COUNT 208 K/MM3 (134-434); RBC 4.53 M/mm3 (4.00-5.60); RDW 14.9 % (11.9-15.9); WHITE BLOOD COUNT 10.7 K/mm3 (4.0-10.0)
[2019-02-06 11:32] LABS: ALBUMIN 3.4 g/dl (3.4-5.0); BILIRUBIN,TOTAL 0.3 mg/dL (0.2-1); BLOOD UREA NITROGEN 15.1 mg/dL (7-18); POTASSIUM 4.8 mmol/L (3.5-5.1); TOT PROT 7.4 g/dl (6.4-8.2)
--- NOTE | 2019-02-06 11:58 | PN ---
S CIWA - CIWA Score Nausea/Vomitin-No Nausea/No Vomiting Muscle Tremors: None Anxiety: 3 Agitation: 0-Normal Activity Paroxysmal Sweats: 3 Orientation: 0-Oriented Tacttile Disturbances: 0-None Auditory Disturbances: 0-None Visual Disturbances: 0-None Headache: 2-Mild CIWA-Ar Total Score: 8 S COWS - Scale Resting Pulse: 0= [place] 80 or Below Sweatin= Beads of Sweat on Face Restless Observation: 1= Difficult to Sit Still Pupil Size: 0= Normal to Room Light Bone or Joint Aches: 2= Severe Diffuse Aches Runny Nose/ Eye Tearin= None GI Upset > 30mins: 0= None Tremor Observation of Outstretched Hands: 0= None Yawning Observation: 1= 1-2x During Session Anxiety or Irritability: 2=Irritable/Anxious Goose Flesh Skin: 0=Smooth Skin COWS Score: 9 S Progress Note (SOAP) Subjective: c/o chills, sweats, anxiety, irritability, and headache. Objective: 02/06/19 11:57 Vital Signs 02/06/19 02/06/19 06:00 09:34 Temperature 96.1 F L 98.6 F Pulse Rate 62 67 Respiratory 20 18 Rate Blood Pressure 100/65 130/99 Lab Results WBC 10.7 K/mm3 (4.0-10.0) H 02/06/19 08:10 RBC 4.53 M/mm3 (4.00-5.60) 02/06/19 08:10 Hgb 11.9 GM/dL (11.7-16.9) 02/06/19 08:10 Hct 36.5 % (35.4-49) 02/06/19 08:10 MCV 80.7 fl (80-96) 02/06/19 08:10 MCHC 32.6 g/dl (32.0-35.9) 02/06/19 08:10 RDW 14.9 % (11.9-15.9) 02/06/19 08:10 Plt Count 208 K/MM3 (134-434) D 02/06/19 08:10 Sodium 136 mmol/L (136-145) 02/06/19 08:10 Potassium 4.8 mmol/L (3.5-5.1) 02/06/19 08:10 Chloride 104 mmol/L (98-107) 02/06/19 08:10 Carbon Dioxide 25 mmol/L (21-32) 02/06/19 08:10 Anion Gap 7 MMOL/L (8-16) L 02/06/19 08:10 BUN 15.1 mg/dL (7-18) 02/06/19 08:10 Creatinine 1.0 mg/dL (0.55-1.3) 02/06/19 08:10 Random Glucose 187 mg/dL (74-106) H 02/06/19 08:10 Calcium 9.0 mg/dL (8.5-10.1) 02/06/19 08:10 Labs noted Assessment: 02/06/19 11:59 AOX3, in no acute respiratory distress. Full ROM, ambulating in the unit. Withdrawal symptoms. elevated blood glucose, pt has history of DM, pt is also on prednisone. 02/06/19 12:00 Plan: continue detox. monitor blood glucose bid before meals and notify provide if reading is 176mg/ dl or higher.
[2019-02-06] MEDS: MONTELUKAST NA 10 MG TABLET PO SCH (22:16)
[2019-02-06] MEDS: THIAMINE HCL 100 MG TABLET (FP) PO SCH (22:16)
[2019-02-07] MEDS: DOXYCYCLINE HYCLATE 100 MG TABLET PO SCH ×2 (06:01→18:21)
[2019-02-07] MEDS ORDERED: METHADONE HCL 10 MG TABLET (FOR DETOX USE ONLY) PO ONE (10:00)
[2019-02-07] MEDS: predniSONE 20 MG TABLET (UD) PO SCH (10:21)
[2019-02-07] MEDS: BUDESONIDE/FORMETEROL FUMARATE 160/4.5 mcg INHALER IH SCH ×2 (10:22→22:11)
--- NOTE | 2019-02-07 15:47 | PN ---
[facility] CIWA - CIWA Score Nausea/Vomitin-Mild Nausea/No Vomiting Muscle Tremors: 3 Anxiety: 2 Agitation: 1-Slight > Activity Paroxysmal Sweats: 3 Orientation: 0-Oriented Tacttile Disturbances: 0-None Auditory Disturbances: 0-None Visual Disturbances: 0-None Headache: 0-None Present CIWA-Ar Total Score: 10 BHS COWS - Scale Resting Pulse: 0= [place] 80 or Below Sweatin= Chills/Flushing Restless Observation: 0= Sits Still Pupil Size: 0= Normal to Room Light Bone or Joint Aches: 1= Mild Discomfort Runny Nose/ Eye Tearin= Nasal Congestion GI Upset > 30mins: 0= None Tremor Observation of Outstretched Hands: 2= Slight Tremor Visible Yawning Observation: 1= 1-2x During Session Anxiety or Irritability: 1=Feels Anxious/Irritable Goose Flesh Skin: 0=Smooth Skin COWS Score: 7 [facility] Progress Note (SOAP) Subjective: sweats nasal congetsion sleep disturbance Objective: 02/07/19 15:47 A & O x 3 nasal congetion tremors Vital Signs Temperature 96.1 F L 02/07/19 12:48 Pulse Rate 74 02/07/19 12:48 Respiratory Rate 20 02/07/19 12:48 Blood Pressure 128/58 L 02/07/19 12:48 O2 Sat by Pulse Oximetry (%) Assessment: 02/07/19 15:47 withdrawal sx hyperglycemia (FS - 105) Plan: continue detox continue increased hydration continue FS monitoring
[2019-02-07] MEDS: THIAMINE HCL 100 MG TABLET (FP) PO SCH (22:11)
[2019-02-07] MEDS: MONTELUKAST NA 10 MG TABLET PO SCH (22:11)
[2019-02-07] MEDS: clonazePAM 0.5 MG TABLET PO PRN (22:13)
[2019-02-08] MEDS ORDERED: METHADONE HCL 5 MG TABLET (FOR DETOX USE ONLY) PO ONE (06:00)
[2019-02-08] MEDS: DOXYCYCLINE HYCLATE 100 MG TABLET PO SCH ×2 (06:32→17:08)
--- NOTE | 2019-02-08 09:10 | DS ---
[facility] Detox Discharge Summary Admission Date: 02/05/19 Discharge Date: 02/08/19 - History Present History: Cannabis Dependence, Opioid Dependence - Physical Exam Results Vital Signs: Vital Signs Temperature 96.6 F L 02/08/19 09:06 Pulse Rate 98 H 02/08/19 09:06 Respiratory Rate 18 02/08/19 09:06 Blood Pressure 151/96 02/08/19 09:06 O2 Sat by Pulse Oximetry (%) Pertinent Admission Physical Exam Findings: pt arrived in withdrawals Laboratory Tests 02/06/19 02/06/19 02/06/19 06:57 08:10 08:10 WBC 10.7 H RBC 4.53 Hgb 11.9 Hct 36.5 MCV 80.7 MCH 26.3 MCHC 32.6 RDW 14.9 Plt Count 208 D MPV 9.6 Sodium 136 Potassium 4.8 Chloride 104 Carbon Dioxide 25 Anion Gap 7 L BUN 15.1 Creatinine 1.0 Est GFR (CKD-EPI)AfAm 105.62 Est GFR (CKD-EPI)NonAf 91.13 POC Glucometer 200 Random Glucose 187 H Calcium 9.0 Total Bilirubin 0.3 AST 10 L ALT 19 Alkaline Phosphatase 82 Total Protein 7.4 Albumin 3.4 RPR Titer HIV 1&2 Antibody Screen HIV P24 Antigen 02/06/19 02/06/19 02/06/19 08:10 08:10 16:22 WBC RBC Hgb Hct MCV MCH MCHC RDW Plt Count MPV Sodium Potassium Chloride Carbon Dioxide Anion Gap BUN Creatinine Est GFR (CKD-EPI)AfAm Est GFR (CKD-EPI)NonAf POC Glucometer 183 Random Glucose Calcium Total Bilirubin AST ALT Alkaline Phosphatase Total Protein Albumin RPR Titer Nonreactive HIV 1&2 Antibody Screen Negative HIV P24 Antigen Negative 02/07/19 02/07/19 02/08/19 06:00 16:37 06:35 WBC RBC Hgb Hct MCV MCH MCHC RDW Plt Count MPV Sodium Potassium Chloride Carbon Dioxide Anion Gap BUN Creatinine Est GFR (CKD-EPI)AfAm Est GFR (CKD-EPI)NonAf POC Glucometer 105 173 158 Random Glucose Calcium Total Bilirubin AST ALT Alkaline Phosphatase Total Protein Albumin RPR Titer HIV 1&2 Antibody Screen HIV P24 Antigen pt is aaox3 ambulating no acute distress no s/s of withdrawals - Treatment Hospital Course: Detox Protocol Followed, Detoxed Safely, Responded well, Discharged Condition Good, Rehab Referral Accepted Patient has Accepted a Rehab Referral to: referred to [facility] inpatient rehab - Medication Discharge Medications: Ambulatory Orders Albuterol Sulfate Inhaler - [Ventolin HFA Inhaler -] 2 inh PO Q4H PRN #1 inhaler 04/15/18 Budesonide/Formeterol Fumarate [SYMBICORT 160/4.5mcg -] 1 inh PO BID #1 inhaler 04/15/18 Metformin HCl [Glucophage] 500 mg PO BID 14 Days #28 tablet 04/15/18 Montelukast Na [Singulair -] 10 mg PO HS #14 tablet 04/15/18 Doxycycline Hyclate [Vibramycin] 1 cap PO BID 02/05/19 Naproxen 1 tablet PO BID PRN 02/05/19 Prednisone [Deltasone] 40 tablet PO DAILY 02/05/19 - Diagnosis (1) Cannabis abuse, episodic use Current Visit: Yes Status: Chronic (2) Opioid dependence with withdrawal Current Visit: Yes Status: Chronic (3) Asthma Current Visit: Yes Status: Chronic Qualifiers: Asthma severity: mild Asthma persistence: unspecified Asthma complication type: unspecified Qualified Code(s): J45.909 - Unspecified asthma , uncomplicated (4) Morbid obesity with BMI of 45.0-49.9, adult Current Visit: Yes Status: Chronic - AMA Did Patient Leave Against Medical Advice: No
[2019-02-08] MEDS: predniSONE 20 MG TABLET (UD) PO SCH (10:19)
[2019-02-08] MEDS: BUDESONIDE/FORMETEROL FUMARATE 160/4.5 mcg INHALER IH SCH (10:20)
[2019-02-08 16:44] VITALS: BP 154/78; PULSE 81; TEMP 96.8
== END 2019-02-08 17:18 | disposition other institution (70) | DRG 773 ==
LOC: YASAS 13:29 → Y6N 17:58
PROVIDERS: ADMIT Allergy & Immunology; ATTEND Allergy & Immunology
PROC: HZ2ZZZZ Detoxification Services for Substance Abuse Treatment (ICD-10-PCS; principal; 2019-02-05)
DX: F11.23 Opioid dependence with withdrawal (principal); F12.10 Cannabis abuse, uncomplicated; F17.210 Nicotine dependence, cigarettes, uncomplicated; J45.909 Unspecified asthma, uncomplicated; E11.65 Type 2 diabetes mellitus with hyperglycemia; E66.01 Morbid (severe) obesity due to excess calories; Z68.42 Body mass index [BMI] 45.0-49.9, adult; Z79.84 Long term (current) use of oral hypoglycemic drugs
CPT/HCPCS: 36415; 80053; 82962; 85027; 86593; 87389

== ENCOUNTER 2019-02-08 17:34 | Inpatient (IN) | payer OTHER ==
--- NOTE | 2019-02-08 14:49 | HP ---
[facility] Rehab Assess/Revision - Admission History Admitted to Rehab from[facility] - Findings Detox History & Physical reviewed: Yes Concur with findings: Yes Inpatient Rehab Admission - Rehab Decision to Admit Inpatient rehab admission?: Yes - Initial Determination Are CD services needed?: Yes Free of communicable disease: Yes Not in need of hospitalization: Yes - Rehab Admission Criteria Previous failed treatment: Yes Poor recovery environment: Yes Comorbidities: Yes Lacks judgement: Yes Patient is meeting Inpatient Rehab admission criteria:: Yes
[~2019-02-08 17:34] MED LIST: ACETAMINOPHEN 325 MG TABLET (FP) PO PRN; ALBUTEROL SO4 8 GM HFA INHALER IH PRN; IBUPROFEN 400 MG TABLET (FP) PO PRN; LOPERAMIDE HCL 2 MG CAPSULE PO PRN; MAG HYDROX/AL HYDROX/SIMETH 30 ML UNIT-DOSE CUP PO PRN; MAGNESIUM CITRATE 300 ML BOTTLE PO PRN; MAGNESIUM HYDROX 2400MG/30ML ORAL SUSPENSION 30 ML CUP PO PRN; MENTHOL/PHENOL 1 EACH UD MM PRN; NICOTINE POLACRILEX 4 MG GUM BUC PRN; P-EPHED 60MG/TRIPROLIDI 2.5MG TABLET PO PRN; guaiFENesin 200 MG/10 ML 10 ML UNIT-DOSE CUPS PO PRN; hydrOXYzine PAMOATE 50 MG CAPSULE (FP) PO PRN
[2019-02-08] MEDS: metFORMIN HCL 500 MG TABLET (FP) PO SCH (19:36)
[2019-02-08] MEDS: THIAMINE HCL 100 MG TABLET (FP) PO SCH (21:41)
[2019-02-08] MEDS: NAPROXEN 500 MG TABLET (FP) PO SCH (21:41)
[2019-02-08] MEDS: MONTELUKAST NA 10 MG TABLET PO SCH (21:41)
[2019-02-08] MEDS: BUDESONIDE/FORMETEROL FUMARATE 160/4.5 mcg INHALER IH SCH (21:42)
[2019-02-08] MEDS: DOXYCYCLINE HYCLATE 100 MG CAPSULE PO SCH (21:43)
[2019-02-08] MEDS ORDERED: MELATONIN 5 MG TABLETS PO PRN (22:00)
[2019-02-09] MEDS: metFORMIN HCL 500 MG TABLET (FP) PO SCH ×2 (06:40→16:49)
[2019-02-09] MEDS ORDERED: predniSONE 20 MG TABLET (UD) PO SCH ×2 (10:00)
[2019-02-09] MEDS: NICOTINE 21 MG/24 HOURS TOPICAL PATCH TD SCH (10:31)
[2019-02-09] MEDS: PRENATAL VITAMINS W/ FOLIC ACID TABLET (FP) PO SCH (10:31)
[2019-02-09] MEDS: NAPROXEN 500 MG TABLET (FP) PO SCH ×2 (10:31→22:03)
[2019-02-09] MEDS: BUDESONIDE/FORMETEROL FUMARATE 160/4.5 mcg INHALER IH SCH ×2 (10:31→22:03)
[2019-02-09] MEDS: DOXYCYCLINE HYCLATE 100 MG CAPSULE PO SCH (10:31)
[2019-02-09] MEDS: DOXYCYCLINE HYCLATE 100 MG TABLET PO SCH (17:02)
[2019-02-09] MEDS: THIAMINE HCL 100 MG TABLET (FP) PO SCH (22:03)
[2019-02-09] MEDS: MONTELUKAST NA 10 MG TABLET PO SCH (22:03)
[2019-02-10] MEDS: metFORMIN HCL 500 MG TABLET (FP) PO SCH ×2 (06:43→16:35)
[2019-02-10] MEDS: PRENATAL VITAMINS W/ FOLIC ACID TABLET (FP) PO SCH (10:21)
[2019-02-10] MEDS: DOXYCYCLINE HYCLATE 100 MG TABLET PO SCH ×2 (10:21→17:27)
[2019-02-10] MEDS: NICOTINE 21 MG/24 HOURS TOPICAL PATCH TD SCH (10:21)
[2019-02-10] MEDS: NAPROXEN 500 MG TABLET (FP) PO SCH ×2 (10:21→21:43)
[2019-02-10] MEDS: BUDESONIDE/FORMETEROL FUMARATE 160/4.5 mcg INHALER IH SCH ×2 (10:22→21:43)
[2019-02-10] MEDS: MONTELUKAST NA 10 MG TABLET PO SCH (21:43)
[2019-02-10] MEDS: THIAMINE HCL 100 MG TABLET (FP) PO SCH (21:43)
[2019-02-11] MEDS: metFORMIN HCL 500 MG TABLET (FP) PO SCH ×2 (06:06→16:33)
[2019-02-11] MEDS: NICOTINE 21 MG/24 HOURS TOPICAL PATCH TD SCH (10:14)
[2019-02-11] MEDS: NAPROXEN 500 MG TABLET (FP) PO SCH ×2 (10:14→21:52)
[2019-02-11] MEDS: DOXYCYCLINE HYCLATE 100 MG TABLET PO SCH ×2 (10:14→17:48)
[2019-02-11] MEDS: PRENATAL VITAMINS W/ FOLIC ACID TABLET (FP) PO SCH (10:14)
[2019-02-11] MEDS: BUDESONIDE/FORMETEROL FUMARATE 160/4.5 mcg INHALER IH SCH ×2 (10:14→21:52)
[2019-02-11] MEDS: HYDROCORTISONE 2.5% TOPICAL CREAM 30 GM TUBE RC SCH ×2 (12:04→21:53)
[2019-02-11] MEDS: MONTELUKAST NA 10 MG TABLET PO SCH (21:52)
[2019-02-11] MEDS: THIAMINE HCL 100 MG TABLET (FP) PO SCH (21:52)
[2019-02-12] MEDS: metFORMIN HCL 500 MG TABLET (FP) PO SCH ×2 (07:40→16:55)
[2019-02-12] MEDS: DOXYCYCLINE HYCLATE 100 MG TABLET PO SCH (10:29)
[2019-02-12] MEDS: NAPROXEN 500 MG TABLET (FP) PO SCH ×2 (10:29→21:45)
[2019-02-12] MEDS: HYDROCORTISONE 2.5% TOPICAL CREAM 30 GM TUBE RC SCH ×2 (10:30→21:45)
[2019-02-12] MEDS: NICOTINE 21 MG/24 HOURS TOPICAL PATCH TD SCH (10:30)
[2019-02-12] MEDS: BUDESONIDE/FORMETEROL FUMARATE 160/4.5 mcg INHALER IH SCH ×2 (10:30→21:46)
[2019-02-12] MEDS: PRENATAL VITAMINS W/ FOLIC ACID TABLET (FP) PO SCH (10:30)
[2019-02-12] MEDS ORDERED: ONDANSETRON *ODT* 4 MG TABLET SL PRN (14:48)
[2019-02-12] MEDS ORDERED: METHOCARBAMOL 500 MG TABLET PO PRN (14:50)
--- NOTE | 2019-02-12 14:56 | PN ---
S Progress Note Note: Pt is a 43 y/o male admitted from detox to rehab on 02/08/19 for heroin use disorder. Pt is c/o w/s of nausea,vomiting and muscle aches. denies diarrhea. Vital Signs - 24 hr 02/12/19 02/12/19 02/12/19 00:30 03:30 07:01 Temperature 97.3 F L Pulse Rate 91 H Respiratory 18 18 18 Rate Blood Pressure 149/97 Laboratory Tests 02/08/19 02/09/19 02/09/19 19:44 06:42 16:32 POC Glucometer 165 134 111 02/10/19 02/10/19 02/11/19 06:41 16:34 06:05 POC Glucometer 92 107 87 02/11/19 02/12/19 16:33 06:25 POC Glucometer 118 77 Abdomen:protruded,obese,nt,+bs A/P w/s n/v Zofran 8 mg q8h odt sl as directed Robaxin 500 mg po tid prn Fluids as tolerated
[2019-02-12] MEDS: THIAMINE HCL 100 MG TABLET (FP) PO SCH (21:45)
[2019-02-12] MEDS: MONTELUKAST NA 10 MG TABLET PO SCH (21:45)
[2019-02-13] MEDS: metFORMIN HCL 500 MG TABLET (FP) PO SCH ×2 (06:36→16:38)
[2019-02-13] MEDS: HYDROCORTISONE 2.5% TOPICAL CREAM 30 GM TUBE RC SCH ×2 (11:24→21:50)
[2019-02-13] MEDS: BUDESONIDE/FORMETEROL FUMARATE 160/4.5 mcg INHALER IH SCH ×2 (11:24→21:50)
[2019-02-13] MEDS: PRENATAL VITAMINS W/ FOLIC ACID TABLET (FP) PO SCH (11:24)
[2019-02-13] MEDS: NAPROXEN 500 MG TABLET (FP) PO SCH ×2 (11:24→21:50)
[2019-02-13] MEDS: NICOTINE 21 MG/24 HOURS TOPICAL PATCH TD SCH (11:24)
[2019-02-13] MEDS: THIAMINE HCL 100 MG TABLET (FP) PO SCH (21:50)
[2019-02-13] MEDS: MONTELUKAST NA 10 MG TABLET PO SCH (21:50)
[2019-02-14] MEDS: metFORMIN HCL 500 MG TABLET (FP) PO SCH ×2 (06:48→16:56)
[2019-02-14] MEDS: NAPROXEN 500 MG TABLET (FP) PO SCH ×2 (10:13→21:43)
[2019-02-14] MEDS: NICOTINE 21 MG/24 HOURS TOPICAL PATCH TD SCH (10:13)
[2019-02-14] MEDS: HYDROCORTISONE 2.5% TOPICAL CREAM 30 GM TUBE RC SCH ×2 (10:13→21:43)
[2019-02-14] MEDS: PRENATAL VITAMINS W/ FOLIC ACID TABLET (FP) PO SCH (10:13)
[2019-02-14] MEDS: BUDESONIDE/FORMETEROL FUMARATE 160/4.5 mcg INHALER IH SCH ×2 (10:14→21:43)
[2019-02-14] MEDS: THIAMINE HCL 100 MG TABLET (FP) PO SCH (21:43)
[2019-02-14] MEDS: MONTELUKAST NA 10 MG TABLET PO SCH (21:43)
[2019-02-15] MEDS: metFORMIN HCL 500 MG TABLET (FP) PO SCH ×2 (07:47→16:47)
[2019-02-15] MEDS: NICOTINE 21 MG/24 HOURS TOPICAL PATCH TD SCH (10:12)
[2019-02-15] MEDS: BUDESONIDE/FORMETEROL FUMARATE 160/4.5 mcg INHALER IH SCH ×2 (10:12→21:47)
[2019-02-15] MEDS: NAPROXEN 500 MG TABLET (FP) PO SCH ×2 (10:12→21:46)
[2019-02-15] MEDS: PRENATAL VITAMINS W/ FOLIC ACID TABLET (FP) PO SCH (10:13)
[2019-02-15] MEDS: HYDROCORTISONE 2.5% TOPICAL CREAM 30 GM TUBE RC SCH ×2 (10:13→21:46)
[2019-02-15] MEDS: MONTELUKAST NA 10 MG TABLET PO SCH (21:46)
[2019-02-15] MEDS: THIAMINE HCL 100 MG TABLET (FP) PO SCH (21:47)
[2019-02-16] MEDS: metFORMIN HCL 500 MG TABLET (FP) PO SCH ×2 (06:33→16:47)
[2019-02-16] MEDS: NAPROXEN 500 MG TABLET (FP) PO SCH ×2 (10:24→21:32)
[2019-02-16] MEDS: PRENATAL VITAMINS W/ FOLIC ACID TABLET (FP) PO SCH (10:25)
[2019-02-16] MEDS: HYDROCORTISONE 2.5% TOPICAL CREAM 30 GM TUBE RC SCH ×2 (10:25→21:32)
[2019-02-16] MEDS: BUDESONIDE/FORMETEROL FUMARATE 160/4.5 mcg INHALER IH SCH ×2 (10:25→21:33)
[2019-02-16] MEDS: NICOTINE 21 MG/24 HOURS TOPICAL PATCH TD SCH (10:25)
[2019-02-16] MEDS ORDERED: LIDOCAINE VISCOUS 2% ORAL/TOP 20 ML UNIT-DOSE CUP MM PRN (11:05)
[2019-02-16] MEDS: MONTELUKAST NA 10 MG TABLET PO SCH (21:32)
[2019-02-16] MEDS: THIAMINE HCL 100 MG TABLET (FP) PO SCH (21:33)
[2019-02-17] MEDS: metFORMIN HCL 500 MG TABLET (FP) PO SCH (06:11)
[2019-02-17 07:01] VITALS: BP 130/77; PULSE 70; TEMP 97.8
[2019-02-17] MEDS: NAPROXEN 500 MG TABLET (FP) PO SCH (10:27)
[2019-02-17] MEDS: NICOTINE 21 MG/24 HOURS TOPICAL PATCH TD SCH (10:27)
[2019-02-17] MEDS: PRENATAL VITAMINS W/ FOLIC ACID TABLET (FP) PO SCH (10:27)
[2019-02-17] MEDS: HYDROCORTISONE 2.5% TOPICAL CREAM 30 GM TUBE RC SCH (10:27)
[2019-02-17] MEDS: BUDESONIDE/FORMETEROL FUMARATE 160/4.5 mcg INHALER IH SCH (10:27)
--- NOTE | 2019-02-17 10:46 | DS ---
[facility] Rehab Discharge Summary - [facility] Rehab Discharge Summary Admission Date: 02/08/19 Discharge Date: 02/18/19 - History Present History: Cannabis dependence, Opioid dependence Additional Comments: pt is a 43 y/i male with a hx of heroin use admitted to rehab after detox treatment and requesting early discharge to go to his dentist for chronic toothache. Pt was seen by counselor and was referred to follow up with CD aftercare. Pt was encouraged to follow up with primary care issues as well as his dental problems upon discharge today so he can focus on his aftercare treatment. Pertinent Past History: Asthma Morbid Obesity - Discharge Physical Exam Vital Signs: Vital Signs Temperature 97.8 F 02/17/19 07:01 Pulse Rate 70 02/17/19 07:01 Respiratory Rate 20 02/17/19 07:01 Blood Pressure 130/77 02/17/19 07:01 O2 Sat by Pulse Oximetry (%) Alert o x 3 nad oob ambulating with steady gait Cardiac:s1 s2,rrr Lungs:cta,nathaly Abdoment:+bs,+++fatty,nt,nd Extremities/Skin:no edema,full ROM,skin intact Pertinent Admission Physical Exam Findings: Laboratory Tests 02/08/19 02/09/19 02/09/19 19:44 06:42 16:32 POC Glucometer 165 134 111 02/10/19 02/10/19 02/11/19 06:41 16:34 06:05 POC Glucometer 92 107 87 02/11/19 02/12/19 02/12/19 16:33 06:25 16:54 POC Glucometer 118 77 84 02/13/19 02/13/19 02/14/19 06:06 16:37 06:47 POC Glucometer 97 130 105 02/14/19 02/15/19 02/15/19 16:32 06:24 16:46 POC Glucometer 114 94 100 02/16/19 02/16/19 02/17/19 06:32 16:47 06:08 POC Glucometer 97 142 96 Unremarkable except: Chronic Toothache/poor dental hygiene - Treatment Discharge Condition: Discharge condition good Hospital Course: Rehab stay was safe. CD aftercare accepted at [facility] program. Pt was unable to focus on treatment and wants to take care of his tooth issues. - Medication Discharge Medications: Ambulatory Orders Albuterol Sulfate Inhaler - [Ventolin HFA Inhaler -] 2 inh PO Q4H PRN #1 inhaler 04/15/18 Budesonide/Formeterol Fumarate [SYMBICORT 160/4.5mcg -] 1 inh PO BID #1 inhaler 04/15/18 Metformin HCl [Glucophage] 500 mg PO BID 14 Days #28 tablet 04/15/18 Montelukast Na [Singulair -] 10 mg PO HS #14 tablet 04/15/18 - Medication-Assisted Treatment (MAT) Medication-Assisted Treatment (MAT): No - Discharge Instructions Diet, activity, other medical instructions: Diet:NCS Activity: oob ad olu Other medical instructions:Folow up with PCP(pt does not remember his doctor's name) at [address] [place] [address]/[place], [place] for medical management. Follow up with dentist on [place], [place] today. Follow up with CD aftercare at [facility] @ [address] [place] [address] on 02/18/19 at 11:00 a.m - Diagnosis (1) Asthma Status: Chronic Qualifiers: Asthma severity: mild Asthma persistence: unspecified Asthma complication type: unspecified Qualified Code(s): J45.909 - Unspecified asthma , uncomplicated (2) Cannabis abuse, episodic use Status: Chronic (3) Morbid obesity with BMI of 45.0-49.9, adult Status: Chronic (4) Opioid dependence Status: Chronic Qualifiers: Substance use status: uncomplicated Qualified Code(s): F11.20 - Opioid dependence, uncomplicated (5) Poor dental hygiene Status: Chronic - Follow-up Referral Minutes to complete discharge: 20 - AMA Did Patient Leave Against Medical Advice: No Additional Comments: Pt states he has a PCP for medical management and has all his medications at home. No need for courtesy Rx to be sent to his pharmacy.
== END 2019-02-17 11:05 | disposition home or self-care (01) | DRG 772 ==
LOC: YASAS 17:34 → Y5N 17:35
PROVIDERS: ADMIT Neuromusculoskeletal Medicine & OMM; ATTEND Neuromusculoskeletal Medicine & OMM
PROC: HZ42ZZZ Group Counseling for Substance Abuse Treatment, Cognitive-Behavioral (ICD-10-PCS; principal; 2019-02-08)
DX: F11.20 Opioid dependence, uncomplicated (principal); F12.90 Cannabis use, unspecified, uncomplicated; F17.210 Nicotine dependence, cigarettes, uncomplicated; J45.909 Unspecified asthma, uncomplicated; E11.9 Type 2 diabetes mellitus without complications; E66.01 Morbid (severe) obesity due to excess calories; Z68.42 Body mass index [BMI] 45.0-49.9, adult
CPT/HCPCS: 82962; Q0162

== ENCOUNTER 2019-05-11 13:52 | Inpatient (IN) | payer OTHER ==
[2019-05-11 15:00] VITALS: BMI 44.9
--- NOTE | 2019-05-11 17:34 | HP ---
COWS - Scale Resting Pulse: 1= NM 81-100 Sweatin= Beads of Sweat on Face Restless Observation: 1= Difficult to Sit Still Pupil Size: 0= Normal to Room Light Bone or Joint Aches: 4=Acute Joint/Muscle Pain Runny Nose/ Eye Tearin= None GI Upset > 30mins: 0= None Tremor Observation: 1= Tremor [place], Not Seen Yawning Observation: 2= >3x During Session Anxiety or Irritability: 2=Irritable/Anxious Goose Flesh Skin: 0=Smooth Skin COWS Score: 14 CIWA Score Nausea/Vomitin-No Nausea/No Vomiting Muscle Tremors: 2 Anxiety: 3 Agitation: 2 Paroxysmal Sweats: 3 Orientation: 0-Oriented Tacttile Disturbances: 0-None Auditory Disturbances: 0-None Visual Disturbances: 0-None Headache: 2-Mild CIWA-Ar Total Score: 12 - Admission Criteria OASAS Guidelines: Admission for Medically Managed Detox: Requires at least one of the followin. CIWA greater than 12 2. Seizures within the past 24 hours 3. Delirium tremens within the past 24 hours 4. Hallucinations within the past 24 hours 5. Acute intervention needed for co occurring medical disorder 6. Acute intervention needed for co occurring psychiatric disorder 7. Severe withdrawal that cannot be handled at a lower level of care (continued vomiting, continued diarrhea, abnormal vital signs) requiring intravenous medication and/or fluids 8. Admitting History and Physical - Admission Chief Complaint: "I'm here for alcohol and herion detox". History of Present Illness: A 44year old male with h/o asthma, DM, alcohol, and opiate use disorder who presents here requesting for alcohol and heroin detox. Pt states that his last detox was at [facility] 3weeks ago. Pt reports that he was on vivitrol but relapsed a month ago. Pt states he has plans of continuing at rehab to start vivitrol. History Source: Patient Limitations to Obtaining History: No Limitations - Past Medical History Pulmonary: Yes: Asthma Endocrine: Yes: Diabetes Mellitus - Smoking History Smoking history: Current some day smoker Have you smoked in the past 12 months: Yes Aproximately how many cigarettes per day: 4 - Alcohol/Substance Use Hx Alcohol Use: Yes (drinking socially) History of Substance Use: reports: Heroin - Social History Usual Living Arrangement: Yes: Alone, With Significant Other Do you think of yourself as: Straight/Heterosexual ADL: Independent History of Recent Travel: No Admission ROS S - HPI Allergies/Adverse Reactions: Allergies Allergy/AdvReac Type Severity Reaction Status Date / Time No Known Allergies Allergy Verified 05/11/19 14:51 Exam Limitations: No Limitations - Ebola screening Have you traveled outside of the country in the last 21 days: No Have you had contact with anyone from an Ebola affected area: No Have you been sick,other than usual withdrawal symptoms: No Do you have a fever: No - Review of Systems Constitutional: Chills, Night Sweats EENT: reports: No Symptoms Reported Respiratory: reports: Shortness of Breath Cardiac: reports: No Symptoms Reported GI: reports: No Symptoms Reported : reports: No Symptoms Reported Musculoskeletal: reports: Back Pain, Muscle Pain Integumentary: reports: No Symptoms Reported, Sweating Neuro: reports: No Symptoms reported, Headache, Tremors Endocrine: reports: No Symptoms Reported Hematology: reports: No Symptoms Reported Psychiatric: reports: No Sypmtoms Reported, other (h/o bipolar.) Other Systems: Reviewed and Negative Patient History - Patient Medical History Hx Asthma: Yes Hx Chronic Obstructive Pulmonary Disease (COPD): No Hx Cancer: No Hx Cardiac Disorders: No Hx Congestive Heart Failure: No Hx Hypertension: No Hx Hypercholesterolemia: No HX Cerebrovascular Accident: No Hx Seizures: No Hx Diabetes: Yes Hx Gastrointestinal Disorders: No Hx Liver Disease: No Hx Genitourinary Disorders: No Hx Sexually Transmitted Disorders: No Hx Renal Disease (ESRD): No Hx Thyroid Disease: No Hx Human Immunodeficiency Virus (HIV): No Hx Hepatitis C: No Hx Depression: No Hx Suicide Attempt: No Hx Bipolar Disorder: Yes Hx Schizophrenia: No - Patient Surgical History Past Surgical History: Yes Hx Neurologic Surgery: No Hx Cataract Extraction: Yes (2013 bilateral) Hx Cardiac Surgery: No Hx Lung Surgery: No Hx Breast Surgery: No Hx Breast Biopsy: No Hx Abdominal Surgery: No Hx Appendectomy: Yes (as child) Hx Cholecystectomy: No Hx Genitourinary Surgery: No Hx Section: No Hx Orthopedic Surgery: No Anesthesia Reaction: No - PPD History Previous Implant?: Yes Documented Results: Negative w/o proof Implanted On Prior R Admission?: Yes Date: 03/30/18 PPD to be Administered?: Yes - Smoking Cessation Smoking history: Current some day smoker Have you smoked in the past 12 months: Yes Aproximately how many cigarettes per day: 5 Hx Chewing Tobacco Use: No Initiated information on smoking cessation: Yes 'Breaking Loose' booklet given: 05/11/19 - Substance & Tx. History Hx Substance Use Treatment: Yes (pt states, he was on vivitrol but relapsed a month ago.) - Substances abused Heroin Substance route: Inhalation Frequency: Daily Amount used: 22 bags Age of first use: 17 Date of last use: 05/11/19 Alcohol Substance route: Oral Frequency: 3-6 times per week Amount used: 6pack Age of first use: 13 Date of last use: 05/09/19 Other Other (specify): Fentanyl Substance route: Inhalation Frequency: Daily Amount used: 22 bags Age of first use: 43 Date of last use: 05/11/19 Admission Physical Exam BHS - Vital Signs Vital Signs: Vital Signs - 24 hr 05/11/19 14:50 Temperature 98.8 F Pulse Rate 98 H Respiratory 20 Rate Blood Pressure 125/69 - Physical General Appearance: Yes: Tremorous, Irritable, Sweating, Anxious HEENTM: Yes: EOMI, Hearing grossly Normal, Normocephalic, Normal Voice, JOHN, Tm 's normal Respiratory: Yes: Chest Non-Tender, Wheezing, Other (mild wheezing in lung soto.) Neck: Yes: No masses,lesions,Nodules, Supple, Trachea in good position Breast: Yes: Within Normal Limits Cardiology: Yes: Regular Rhythm, Regular Rate, S1, S2 Abdominal: Yes: Normal Bowel Sounds, Soft Genitourinary: Yes: Within Normal Limits Back: Yes: Normal Inspection Musculoskeletal: Yes: full range of Motion, Gait Steady Extremities: Yes: Normal Capillary Refill, Normal Inspection, Normal Range of Motion, Non-Tender Neurological: Yes: Alert, Normal Mood/Affect Integumentary: Yes: Dry, Warm - Diagnostic (1) Diabetes mellitus Current Visit: Yes Status: Chronic (2) Alcohol use disorder, mild, abuse Current Visit: Yes Status: Acute (3) Asthma Current Visit: No Status: Chronic Qualifiers: Asthma severity: mild Asthma persistence: unspecified Asthma complication type: unspecified Qualified Code(s): J45.909 - Unspecified asthma , uncomplicated (4) Morbid obesity with BMI of 45.0-49.9, adult Current Visit: No Status: Chronic (5) Opioid dependence Current Visit: No Status: Chronic Qualifiers: Substance use status: uncomplicated Qualified Code(s): F11.20 - Opioid dependence, uncomplicated (6) Opioid dependence with withdrawal Current Visit: No Status: Chronic Cleared for Admission [facility] - Detox or Rehab [facility] Level of Care: Medically Managed Detox Regimen/Protocol: Methadone/Librium Claeared for Rehab Admission: No Breathalyzer - Breathalyzer Breathalyzer: 0 Urine Drug Screen - Test Device Lot number: [id number] Expiration date: 12/02/20 - Control Is test valid?: Yes - Results Drug screen NEGATIVE: No Urine drug screen results: FEN-Fentanyl, MOP-Opiates, MTD-Methadone Inpatient Rehab Admission - Rehab Decision to Admit Inpatient rehab admission?: No
[2019-05-11] MEDS ORDERED: BISMUTH SUBSALICYLATE 524 MG/30 ML UD PO PRN (17:58)
[2019-05-11] MEDS ORDERED: hydrOXYzine PAMOATE 25 MG CAPSULE (FP) PO PRN (17:58)
[2019-05-11] MEDS ORDERED: MAGNESIUM HYDROX 2400MG/30ML ORAL SUSPENSION 30 ML CUP PO PRN (17:58)
[2019-05-11] MEDS ORDERED: IBUPROFEN 400 MG TABLET (FP) PO PRN (17:58)
[2019-05-11] MEDS ORDERED: MAG HYDROX/AL HYDROX/SIMETH 30 ML UNIT-DOSE CUP PO PRN (17:58)
[2019-05-11] MEDS ORDERED: MENTHOL/PHENOL 1 EACH UD MM PRN (17:58)
[2019-05-11] MEDS ORDERED: METHOCARBAMOL 500 MG TABLET PO PRN (17:58)
[2019-05-11] MEDS ORDERED: MAGNESIUM CITRATE 300 ML BOTTLE PO PRN (17:58)
[2019-05-11] MEDS ORDERED: ACETAMINOPHEN 325 MG TABLET (FP) PO PRN ×2 (17:58)
[2019-05-11] MEDS ORDERED: cloNIDine HCL 0.1 MG TABLET PO PRN (18:00)
[2019-05-11] MEDS ORDERED: ALBUTEROL SO4 8 GM HFA INHALER IH PRN (18:06)
[2019-05-11] MEDS ORDERED: METHADONE HCL 10 MG TABLET (FOR DETOX USE ONLY) PO ONE (18:30)
[2019-05-11] MEDS: BUDESONIDE/FORMETEROL FUMARATE 160/4.5 mcg INHALER IH SCH (22:22)
[2019-05-11] MEDS: THIAMINE HCL 100 MG TABLET (FP) PO SCH (22:22)
[2019-05-11] MEDS: MONTELUKAST NA 10 MG TABLET PO SCH (22:22)
[2019-05-11] MEDS: chlordiazePOXIDE 5 MG CAPSULE PO SCH (22:22)
[2019-05-12] MEDS ORDERED: chlordiazePOXIDE HCL 10 MG CAPSULE PO SCH (05:00)
[2019-05-12] MEDS: chlordiazePOXIDE 5 MG CAPSULE PO SCH ×2 (05:34→13:49)
[2019-05-12] MEDS: metFORMIN HCL 500 MG TABLET (FP) PO SCH ×2 (06:26→17:41)
[2019-05-12] MEDS ORDERED: METHADONE HCL 10 MG TABLET (FOR DETOX USE ONLY) ONE (08:47)
[2019-05-12] MEDS ORDERED: METHADONE HCL 5 MG TABLET (FOR DETOX USE ONLY) ONE (08:47)
[2019-05-12 09:45] LABS: HEMATOCRIT 33.9 % (35.4-49); MCH 26.2 pg (25.7-33.7); MCHC 32.5 g/dl (32.0-35.9); MEAN CELL VOLUME 80.6 fl (80-96); MEAN PLT VOLUME 10.1 fl (7.5-11.1); PLATELET COUNT 133 K/MM3 (134-434); RDW 16.2 % (11.9-15.9); WHITE BLOOD COUNT 10.3 K/mm3 (4.0-10.0)
[2019-05-12] MEDS ORDERED: METHADONE (DETOX) 20 MG, METHADONE (DETOX) 5 MG PO ONE (10:00)
[2019-05-12 10:10] LABS: ALBUMIN 3.2 g/dl (3.4-5.0); BILIRUBIN,TOTAL 0.7 mg/dL (0.2-1); BLOOD UREA NITROGEN 17.3 mg/dL (7-18); CREATININE 1.1 mg/dL (0.55-1.3); POTASSIUM 3.5 mmol/L (3.5-5.1); TOT PROT 6.3 g/dl (6.4-8.2)
[2019-05-12] MEDS: PRENATAL VITAMINS W/ FOLIC ACID TABLET (FP) PO SCH (10:20)
[2019-05-12] MEDS: BUDESONIDE/FORMETEROL FUMARATE 160/4.5 mcg INHALER IH SCH ×2 (10:21→21:35)
--- NOTE | 2019-05-12 11:13 | EKG ---
Test Reason : Blood Pressure : / mmHG Vent. Rate : 063 BPM Atrial Rate : 063 BPM P-R Int : 174 ms QRS Dur : 100 ms QT Int : 484 ms P-R-T Axes : 026 -03 -02 degrees QTc Int : 495 ms NORMAL SINUS RHYTHM PROLONGED QT ABNORMAL ECG WHEN COMPARED WITH ECG OF 28-MAR-2018 12:42, QT HAS LENGTHENED Confirmed by RADHA MOORE, ABUNDIO ([id number]) on 05/12/2019 11:13:28 AM Referred By: JO-ANN BLANCO Confirmed By:ABUNDIO GARCIA MD
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
[2019-05-12] MEDS: chlordiazePOXIDE HCL 10 MG CAPSULE PO SCH (21:34)
[2019-05-12] MEDS: MONTELUKAST NA 10 MG TABLET PO SCH (21:34)
[2019-05-12] MEDS: MELATONIN 5 MG TABLETS PO PRN (21:35)
[2019-05-12] MEDS: THIAMINE HCL 100 MG TABLET (FP) PO SCH (21:35)
[2019-05-13] MEDS: chlordiazePOXIDE HCL 10 MG CAPSULE PO SCH ×2 (05:59→13:43)
[2019-05-13] MEDS: metFORMIN HCL 500 MG TABLET (FP) PO SCH ×2 (06:17→18:04)
[2019-05-13] MEDS ORDERED: METHADONE HCL 10 MG TABLET (FOR DETOX USE ONLY) PO ONE (10:00)
[2019-05-13] MEDS: PRENATAL VITAMINS W/ FOLIC ACID TABLET (FP) PO SCH (10:25)
[2019-05-13] MEDS: BUDESONIDE/FORMETEROL FUMARATE 160/4.5 mcg INHALER IH SCH ×2 (10:26→22:26)
[2019-05-13] MEDS ORDERED: IBUPROFEN 600 MG TABLET (FP) PO PRN (10:57)
--- NOTE | 2019-05-13 10:57 | PN ---
[facility] CIWA - CIWA Score Nausea/Vomitin-No Nausea/No Vomiting Muscle Tremors: 3 Anxiety: 2 Agitation: 3 Paroxysmal Sweats: 2 Orientation: 0-Oriented Tacttile Disturbances: 0-None Auditory Disturbances: 0-None Visual Disturbances: 0-None Headache: 0-None Present CIWA-Ar Total Score: 10 [facility] COWS - Scale Resting Pulse: 0= [place] 80 or Below Sweatin= Chills/Flushing Restless Observation: 1= Difficult to Sit Still Pupil Size: 0= Normal to Room Light Bone or Joint Aches: 2= Severe Diffuse Aches Runny Nose/ Eye Tearin= None GI Upset > 30mins: 1= Stomach Cramp Tremor Observation of Outstretched Hands: 1= Tremor [place], Not Seen Yawning Observation: 1= 1-2x During Session Anxiety or Irritability: 2=Irritable/Anxious Goose Flesh Skin: 0=Smooth Skin COWS Score: 9 [facility] Progress Note (SOAP) Subjective: sweats shakes body aches restless interrupted sleep Objective: 05/13/19 10:56 Vital Signs Temperature 96.6 F L 05/13/19 09:37 Pulse Rate 61 05/13/19 09:37 Respiratory Rate 18 05/13/19 09:37 Blood Pressure 146/72 05/13/19 09:37 O2 Sat by Pulse Oximetry (%) Laboratory Tests 05/12/19 05/12/19 05/12/19 05:35 08:00 08:00 WBC 10.3 H RBC 4.20 Hgb 11.0 L Hct 33.9 L MCV 80.6 MCH 26.2 MCHC 32.5 RDW 16.2 H Plt Count 133 L D MPV 10.1 Sodium 135 L Potassium 3.5 Chloride 101 Carbon Dioxide 28 Anion Gap 7 L BUN 17.3 Creatinine 1.1 Est GFR (CKD-EPI)AfAm 93.47 Est GFR (CKD-EPI)NonAf 80.64 POC Glucometer 119 Random Glucose 98 Calcium 8.0 L Total Bilirubin 0.7 AST 18 ALT 17 Alkaline Phosphatase 66 Total Protein 6.3 L Albumin 3.2 L RPR Titer 05/12/19 05/12/19 05/12/19 08:00 11:30 16:38 WBC RBC Hgb Hct MCV MCH MCHC RDW Plt Count MPV Sodium Potassium Chloride Carbon Dioxide Anion Gap BUN Creatinine Est GFR (CKD-EPI)AfAm Est GFR (CKD-EPI)NonAf POC Glucometer 135 105 Random Glucose Calcium Total Bilirubin AST ALT Alkaline Phosphatase Total Protein Albumin RPR Titer Nonreactive 05/13/19 05:17 WBC RBC Hgb Hct MCV MCH MCHC RDW Plt Count MPV Sodium Potassium Chloride Carbon Dioxide Anion Gap BUN Creatinine Est GFR (CKD-EPI)AfAm Est GFR (CKD-EPI)NonAf POC Glucometer 102 Random Glucose Calcium Total Bilirubin AST ALT Alkaline Phosphatase Total Protein Albumin RPR Titer aaox3 ambulating no acute distress Assessment: 05/13/19 10:56 withdrawals Plan: continue detox increase fluids motrin 600mg prn roboxin prn
[2019-05-13] MEDS: MONTELUKAST NA 10 MG TABLET PO SCH (22:12)
[2019-05-13] MEDS: MELATONIN 5 MG TABLETS PO PRN (22:13)
[2019-05-13] MEDS: THIAMINE HCL 100 MG TABLET (FP) PO SCH (22:13)
[2019-05-14] MEDS ORDERED: chlordiazePOXIDE HCL 10 MG CAPSULE PO ONE (05:00)
[2019-05-14] MEDS: chlordiazePOXIDE HCL 10 MG CAPSULE PO PRN ×2 (06:12→17:20)
[2019-05-14] MEDS: metFORMIN HCL 500 MG TABLET (FP) PO SCH ×2 (06:13→17:18)
[2019-05-14] MEDS ORDERED: METHADONE HCL 10 MG TABLET (FOR DETOX USE ONLY) ONE (08:57)
[2019-05-14] MEDS ORDERED: METHADONE HCL 5 MG TABLET (FOR DETOX USE ONLY) ONE (08:57)
[2019-05-14] MEDS ORDERED: METHADONE (DETOX) 10 MG, METHADONE (DETOX) 5 MG PO ONE (10:00)
[2019-05-14] MEDS: PRENATAL VITAMINS W/ FOLIC ACID TABLET (FP) PO SCH (10:26)
[2019-05-14] MEDS: BUDESONIDE/FORMETEROL FUMARATE 160/4.5 mcg INHALER IH SCH ×2 (10:27→22:03)
--- NOTE | 2019-05-14 12:29 | PN ---
[facility] CIWA - CIWA Score Nausea/Vomitin-No Nausea/No Vomiting Muscle Tremors: 2 Anxiety: 2 Agitation: 2 Paroxysmal Sweats: 2 Orientation: 0-Oriented Tacttile Disturbances: 0-None Auditory Disturbances: 0-None Visual Disturbances: 0-None Headache: 0-None Present CIWA-Ar Total Score: 8 S COWS - Scale Resting Pulse: 0= [place] 80 or Below Sweatin= Chills/Flushing Restless Observation: 1= Difficult to Sit Still Pupil Size: 0= Normal to Room Light Bone or Joint Aches: 1= Mild Discomfort Runny Nose/ Eye Tearin= None GI Upset > 30mins: 0= None Tremor Observation of Outstretched Hands: 1= Tremor [place], Not Seen Yawning Observation: 0= None Anxiety or Irritability: 2=Irritable/Anxious Goose Flesh Skin: 0=Smooth Skin COWS Score: 6 S Progress Note (SOAP) Subjective: sweats chills agitation tired/weak Objective: 05/14/19 12:28 Vital Signs Temperature 97.5 F L 05/14/19 10:21 Pulse Rate 63 05/14/19 10:21 Respiratory Rate 18 05/14/19 10:21 Blood Pressure 112/77 05/14/19 10:21 O2 Sat by Pulse Oximetry (%) Laboratory Tests 05/12/19 05/12/19 05/12/19 05:35 08:00 08:00 WBC 10.3 H RBC 4.20 Hgb 11.0 L Hct 33.9 L MCV 80.6 MCH 26.2 MCHC 32.5 RDW 16.2 H Plt Count 133 L D MPV 10.1 Sodium 135 L Potassium 3.5 Chloride 101 Carbon Dioxide 28 Anion Gap 7 L BUN 17.3 Creatinine 1.1 Est GFR (CKD-EPI)AfAm 93.47 Est GFR (CKD-EPI)NonAf 80.64 POC Glucometer 119 Random Glucose 98 Calcium 8.0 L Total Bilirubin 0.7 AST 18 ALT 17 Alkaline Phosphatase 66 Total Protein 6.3 L Albumin 3.2 L RPR Titer 05/12/19 05/12/19 05/12/19 08:00 11:30 16:38 WBC RBC Hgb Hct MCV MCH MCHC RDW Plt Count MPV Sodium Potassium Chloride Carbon Dioxide Anion Gap BUN Creatinine Est GFR (CKD-EPI)AfAm Est GFR (CKD-EPI)NonAf POC Glucometer 135 105 Random Glucose Calcium Total Bilirubin AST ALT Alkaline Phosphatase Total Protein Albumin RPR Titer Nonreactive 05/13/19 05/13/19 05/14/19 05:17 16:43 06:09 WBC RBC Hgb Hct MCV MCH MCHC RDW Plt Count MPV Sodium Potassium Chloride Carbon Dioxide Anion Gap BUN Creatinine Est GFR (CKD-EPI)AfAm Est GFR (CKD-EPI)NonAf POC Glucometer 102 106 93 Random Glucose Calcium Total Bilirubin AST ALT Alkaline Phosphatase Total Protein Albumin RPR Titer labs noted H:H mildly low; will start iron supplement aaox3 ambulating no acute distress Assessment: 05/14/19 12:29 withdrawals Plan: continue detox increase fluids iron bid ordered
[2019-05-14] MEDS: FERROUS SO4 325 MG TABLET (FP) PO SCH ×2 (12:58→17:18)
[2019-05-14] MEDS: MELATONIN 5 MG TABLETS PO PRN (22:03)
[2019-05-14] MEDS: THIAMINE HCL 100 MG TABLET (FP) PO SCH (22:03)
[2019-05-14] MEDS: MONTELUKAST NA 10 MG TABLET PO SCH (22:03)
[2019-05-15] MEDS: FERROUS SO4 325 MG TABLET (FP) PO SCH ×3 (07:27→17:35)
[2019-05-15] MEDS: metFORMIN HCL 500 MG TABLET (FP) PO SCH ×2 (07:27→17:35)
[2019-05-15] MEDS ORDERED: METHADONE HCL 10 MG TABLET (FOR DETOX USE ONLY) PO ONE (10:00)
[2019-05-15] MEDS: PRENATAL VITAMINS W/ FOLIC ACID TABLET (FP) PO SCH (10:31)
[2019-05-15] MEDS: BUDESONIDE/FORMETEROL FUMARATE 160/4.5 mcg INHALER IH SCH ×2 (10:31→22:38)
--- NOTE | 2019-05-15 13:49 | PN ---
S Progress Note Note: this am RN states that pt fell from chair. the leg of chair broke and he fell and landed on his buttock. Pt was assessed and no skin breakdown, no bruising noted. Pt states hes ok and no c/o pain. pt was advised to ask for motrin or tylenol if he needs it. pt acknowledged fall protocol initiated.
--- NOTE | 2019-05-15 13:55 | PN ---
[facility] CIWA - CIWA Score Nausea/Vomitin-No Nausea/No Vomiting Muscle Tremors: None Anxiety: 1-Mildly Anxious Agitation: 1-Slight > Activity Paroxysmal Sweats: No Perspiration Orientation: 0-Oriented Tacttile Disturbances: 0-None Auditory Disturbances: 0-None Visual Disturbances: 0-None Headache: 0-None Present CIWA-Ar Total Score: 2 S COWS - Scale Resting Pulse: 0= [place] 80 or Below Sweatin= No chills or [place] Restless Observation: 1= Difficult to Sit Still Pupil Size: 0= Normal to Room Light Bone or Joint Aches: 1= Mild Discomfort Runny Nose/ Eye Tearin= None GI Upset > 30mins: 0= None Tremor Observation of Outstretched Hands: 0= None Yawning Observation: 0= None Anxiety or Irritability: 1=Feels Anxious/Irritable Goose Flesh Skin: 0=Smooth Skin COWS Score: 3 [facility] Progress Note (SOAP) Subjective: feeling fine little anxiety Objective: 05/15/19 13:54 Vital Signs Temperature 98.9 F 05/15/19 13:22 Pulse Rate 79 05/15/19 13:22 Respiratory Rate 18 05/15/19 13:22 Blood Pressure 120/74 05/15/19 13:22 O2 Sat by Pulse Oximetry (%) aaox3 ambulating no acute distress Assessment: 05/15/19 13:54 mild withdrawals Plan: continue detox d/c in am
[2019-05-15] MEDS: THIAMINE HCL 100 MG TABLET (FP) PO SCH (22:37)
[2019-05-15] MEDS: MELATONIN 5 MG TABLETS PO PRN (22:37)
[2019-05-15] MEDS: MONTELUKAST NA 10 MG TABLET PO SCH (22:37)
[2019-05-16] MEDS ORDERED: METHADONE HCL 5 MG TABLET (FOR DETOX USE ONLY) PO ONE (06:00)
[2019-05-16] MEDS: metFORMIN HCL 500 MG TABLET (FP) PO SCH (06:20)
[2019-05-16] MEDS: FERROUS SO4 325 MG TABLET (FP) PO SCH (07:28)
[2019-05-16 13:09] VITALS: BP 110/74; PULSE 78; TEMP 96.2
--- NOTE | 2019-05-16 17:19 | DS ---
[facility] Detox Discharge Summary Admission Date: 05/11/19 Discharge Date: 05/16/19 - History Present History: Alcohol Dependence, Opioid Dependence Additional Comments: Patient completed detox successfully and discharged safely. Patient to follow up with PCP within 1 week. Pertinent Past History: Asthma DM Nicotine dependence - Physical Exam Results Vital Signs: Vital Signs Temperature 96.2 F L 05/16/19 08:45 Pulse Rate 78 05/16/19 08:45 Respiratory Rate 20 05/16/19 08:45 Blood Pressure 110/74 05/16/19 08:45 O2 Sat by Pulse Oximetry (%) Pertinent Admission Physical Exam Findings: Withdrawal sxs Laboratory Tests 05/12/19 05/12/19 05/12/19 05:35 08:00 08:00 WBC 10.3 H RBC 4.20 Hgb 11.0 L Hct 33.9 L MCV 80.6 MCH 26.2 MCHC 32.5 RDW 16.2 H Plt Count 133 L D MPV 10.1 Sodium 135 L Potassium 3.5 Chloride 101 Carbon Dioxide 28 Anion Gap 7 L BUN 17.3 Creatinine 1.1 Est GFR (CKD-EPI)AfAm 93.47 Est GFR (CKD-EPI)NonAf 80.64 POC Glucometer 119 Random Glucose 98 Calcium 8.0 L Total Bilirubin 0.7 AST 18 ALT 17 Alkaline Phosphatase 66 Total Protein 6.3 L Albumin 3.2 L RPR Titer 05/12/19 05/12/19 05/12/19 08:00 11:30 16:38 WBC RBC Hgb Hct MCV MCH MCHC RDW Plt Count MPV Sodium Potassium Chloride Carbon Dioxide Anion Gap BUN Creatinine Est GFR (CKD-EPI)AfAm Est GFR (CKD-EPI)NonAf POC Glucometer 135 105 Random Glucose Calcium Total Bilirubin AST ALT Alkaline Phosphatase Total Protein Albumin RPR Titer Nonreactive 05/13/19 05/13/19 05/14/19 05:17 16:43 06:09 WBC RBC Hgb Hct MCV MCH MCHC RDW Plt Count MPV Sodium Potassium Chloride Carbon Dioxide Anion Gap BUN Creatinine Est GFR (CKD-EPI)AfAm Est GFR (CKD-EPI)NonAf POC Glucometer 102 106 93 Random Glucose Calcium Total Bilirubin AST ALT Alkaline Phosphatase Total Protein Albumin RPR Titer 05/14/19 05/15/19 05/15/19 16:20 06:33 17:29 WBC RBC Hgb Hct MCV MCH MCHC RDW Plt Count MPV Sodium Potassium Chloride Carbon Dioxide Anion Gap BUN Creatinine Est GFR (CKD-EPI)AfAm Est GFR (CKD-EPI)NonAf POC Glucometer 116 100 110 Random Glucose Calcium Total Bilirubin AST ALT Alkaline Phosphatase Total Protein Albumin RPR Titer 05/16/19 06:19 WBC RBC Hgb Hct MCV MCH MCHC RDW Plt Count MPV Sodium Potassium Chloride Carbon Dioxide Anion Gap BUN Creatinine Est GFR (CKD-EPI)AfAm Est GFR (CKD-EPI)NonAf POC Glucometer 93 Random Glucose Calcium Total Bilirubin AST ALT Alkaline Phosphatase Total Protein Albumin RPR Titer Labs reviewed: anemia noted: follow up with PCP for management - Treatment Hospital Course: Detox Protocol Followed, Detoxed Safely, Responded well, Discharged Condition Good - Medication Discharge Medications: Ambulatory Orders Albuterol Sulfate Inhaler - [Ventolin HFA Inhaler -] 2 inh PO Q4H PRN #1 inhaler 04/15/18 Budesonide/Formeterol Fumarate [SYMBICORT 160/4.5mcg -] 1 inh PO BID #1 inhaler 04/15/18 Metformin HCl [Glucophage] 500 mg PO BID 14 Days #28 tablet 04/15/18 Montelukast Na [Singulair -] 10 mg PO HS #14 tablet 04/15/18 Naltrexone Microspheres [Vivitrol] 380 mg IM MONTHLY 05/11/19 Sertraline HCl [Zoloft -] 50 mg PO DAILY 05/11/19 hydrOXYzine PAMOATE [Vistaril -] 50 mg PO TID PRN 05/11/19 Naloxone HCl [Narcan] 4 mg NS ASDIR PRN #1 spray 05/12/19 - Diagnosis (1) Anemia Status: Acute (2) Alcohol dependence with withdrawal, uncomplicated Status: Acute (3) Nicotine dependence Status: Chronic (4) Bipolar disorder Status: Chronic (5) Asthma Status: Chronic Qualifiers: Asthma severity: mild Asthma persistence: unspecified Asthma complication type: unspecified Qualified Code(s): J45.909 - Unspecified asthma , uncomplicated (6) Diabetes mellitus Status: Chronic (7) Opioid dependence with withdrawal Status: Acute - AMA Did Patient Leave Against Medical Advice: No (Follow up with PCP within 1 week)
== END 2019-05-16 09:40 | disposition home or self-care (01) | DRG 773 ==
LOC: YASAS 13:52 → Y3N 17:50 → Y6N 05-12 14:58
PROVIDERS: ADMIT Allergy & Immunology; ATTEND Allergy & Immunology
PROC: HZ2ZZZZ Detoxification Services for Substance Abuse Treatment (ICD-10-PCS; principal; 2019-05-11)
DX: F10.230 Alcohol dependence with withdrawal, uncomplicated (principal); F11.23 Opioid dependence with withdrawal; F17.210 Nicotine dependence, cigarettes, uncomplicated; F31.9 Bipolar disorder, unspecified; E11.9 Type 2 diabetes mellitus without complications; Z79.84 Long term (current) use of oral hypoglycemic drugs; J45.909 Unspecified asthma, uncomplicated; D64.9 Anemia, unspecified; E66.01 Morbid (severe) obesity due to excess calories; Z68.41 Body mass index [BMI] 40.0-44.9, adult
CPT/HCPCS: 36415; 80053; 82962; 85027; 86593; 93005; 93010

== ENCOUNTER 2020-03-07 15:32 | Inpatient (IN) | payer OTHER ==
[2020-03-07 16:23] VITALS: BMI 47.2
[2020-03-07] MEDS ORDERED: LOPERAMIDE HCL 2 MG CAPSULE PO PRN (18:00)
[2020-03-07] MEDS ORDERED: MAGNESIUM CITRATE 300 ML BOTTLE PO PRN (18:00)
[2020-03-07] MEDS ORDERED: MAGNESIUM HYDROX 2400MG/30ML ORAL SUSPENSION 30 ML CUP PO PRN (18:00)
[2020-03-07] MEDS ORDERED: guaiFENesin 200 MG/10 ML 10 ML UNIT-DOSE CUPS PO PRN (18:00)
[2020-03-07] MEDS ORDERED: MAG HYDROX/AL HYDROX/SIMETH 30 ML UNIT-DOSE CUP PO PRN (18:00)
[2020-03-07] MEDS ORDERED: P-EPHED 60MG/TRIPROLIDI 2.5MG TABLET PO PRN (18:00)
[2020-03-07] MEDS: BUPRENORPHINE/NALOXONE 8 MG/2 MG FILM PACKET SL SCH ×2 (19:52→23:53)
[2020-03-07] MEDS: APIXABAN 5 MG TABLET PO SCH (21:16)
[2020-03-07] MEDS: MONTELUKAST NA 10 MG TABLET PO SCH (21:16)
[2020-03-07] MEDS: THIAMINE HCL 100 MG TABLET (FP) PO SCH (21:17)
[2020-03-07] MEDS: MELATONIN 5 MG TABLETS PO SCH (21:17)
[2020-03-07] MEDS: BUDESONIDE/FORMETEROL FUMARATE 160/4.5 mcg INHALER IH SCH (21:18)
[2020-03-08] MEDS ORDERED: PT OWN MED DRAWER 7, Y5N ONE (09:03)
[2020-03-08] MEDS: BUPRENORPHINE/NALOXONE 8 MG/2 MG FILM PACKET SL SCH ×2 (09:04→22:55)
[2020-03-08] MEDS: APIXABAN 5 MG TABLET PO SCH ×2 (09:04→23:00)
[2020-03-08] MEDS: PRENATAL VITAMINS W/ FOLIC ACID TABLET (FP) PO SCH (09:04)
[2020-03-08] MEDS ORDERED: AZITHROMYCIN 250 MG TABLET PO SCH ×2 (10:00)
[2020-03-08] MEDS ORDERED: CEFPODOXIME PROXETIL 100 MG TABLET PO SCH (10:00)
[2020-03-08] MEDS: BUDESONIDE/FORMETEROL FUMARATE 160/4.5 mcg INHALER IH SCH ×2 (10:05→23:00)
[2020-03-08 10:48] LABS: PH,URINE 6.5 (5.0-8.0); URINE APPEARANCE CLEAR; URINE BILIRUBIN NEGATIVE (NEGATIVE); URINE COLOR YELLOW; URINE GLUCOSE (UA) NEGATIVE (NEGATIVE); URINE KETONE NEGATIVE (NEGATIVE); URINE LEUK ESTERASE NEGATIVE (NEGATIVE); URINE NITRITE NEGATIVE (NEGATIVE); URINE PROTEIN TRACE (NEGATIVE)
[2020-03-08 10:59] LABS: HEMATOCRIT 33.9 % (35.4-49); HEMOGLOBIN 10.7 GM/dL (11.7-16.9); MCH 25.8 pg (25.7-33.7); MCHC 31.4 g/dl (32.0-35.9); MEAN CELL VOLUME 82.3 fl (80-96); MEAN PLT VOLUME 10.2 fl (7.5-11.1); PLATELET COUNT 116 K/MM3 (134-434); RBC 4.12 M/mm3 (4.00-5.60); RDW 15.1 % (11.9-15.9)
[2020-03-08 11:21] LABS: POTASSIUM 3.8 mmol/L (3.5-5.1)
[2020-03-08 11:26] LABS: CALCIUM 8.3 mg/dL (8.5-10.1)
[2020-03-08 11:27] LABS: BLOOD UREA NITROGEN 7.9 mg/dL (7-18)
[2020-03-08 11:30] LABS: BILIRUBIN,TOTAL 0.7 mg/dL (0.2-1); CREATININE 1.2 mg/dL (0.55-1.3)
[2020-03-08 11:31] LABS: TOT PROT 6.2 g/dl (6.4-8.2)
[2020-03-08] MEDS: CEFPODOXIME PROXETIL 200 MG TABLET [NF] PO SCH (12:03)
[2020-03-08 13:17] LABS: SICKLE CELL SCREEN NEGATIVE (NEGATIVE)
[2020-03-08] MEDS ORDERED: BUPRENORPHINE/NALOXONE 8 MG/2 MG FILM PACKET SL ONE (19:38)
[2020-03-08] MEDS: MELATONIN 5 MG TABLETS PO SCH (23:00)
[2020-03-08] MEDS: THIAMINE HCL 100 MG TABLET (FP) PO SCH (23:00)
[2020-03-08] MEDS: MONTELUKAST NA 10 MG TABLET PO SCH (23:00)
[2020-03-09] MEDS: CEFPODOXIME PROXETIL 200 MG TABLET [NF] PO SCH (00:11)
[2020-03-09] MEDS: ALBUTEROL SO4 HFA INHALER IH PRN ×2 (02:14→09:50)
[2020-03-09] MEDS: CLINDAMYCIN HCL 150 MG CAPSULE (FP) PO SCH ×3 (06:23→21:16)
[2020-03-09] MEDS: APIXABAN 5 MG TABLET PO SCH ×2 (09:49→21:15)
[2020-03-09] MEDS: BUDESONIDE/FORMETEROL FUMARATE 160/4.5 mcg INHALER IH SCH ×2 (09:49→21:17)
[2020-03-09] MEDS: BUPRENORPHINE/NALOXONE 8 MG/2 MG FILM PACKET SL SCH ×2 (09:50→21:16)
[2020-03-09] MEDS: AZITHROMYCIN 250 MG TABLET PO SCH (09:50)
[2020-03-09] MEDS: PRENATAL VITAMINS W/ FOLIC ACID TABLET (FP) PO SCH (09:50)
[2020-03-09] MEDS: THIAMINE HCL 100 MG TABLET (FP) PO SCH (21:15)
[2020-03-09] MEDS: MONTELUKAST NA 10 MG TABLET PO SCH (21:15)
[2020-03-09] MEDS: MELATONIN 5 MG TABLETS PO SCH (21:15)
[2020-03-10] MEDS: ACETAMINOPHEN 325 MG TABLET (FP) PO PRN (00:33)
[2020-03-10] MEDS: CLINDAMYCIN HCL 150 MG CAPSULE (FP) PO SCH ×3 (06:28→21:27)
[2020-03-10] MEDS: PRENATAL VITAMINS W/ FOLIC ACID TABLET (FP) PO SCH (10:15)
[2020-03-10] MEDS: BUPRENORPHINE/NALOXONE 8 MG/2 MG FILM PACKET SL SCH ×2 (10:15→21:27)
[2020-03-10] MEDS: APIXABAN 5 MG TABLET PO SCH ×2 (10:15→21:25)
[2020-03-10] MEDS: AZITHROMYCIN 250 MG TABLET PO SCH (10:16)
[2020-03-10] MEDS: ALBUTEROL SO4 HFA INHALER IH PRN (10:17)
[2020-03-10] MEDS: BUDESONIDE/FORMETEROL FUMARATE 160/4.5 mcg INHALER IH SCH ×2 (10:18→21:26)
[2020-03-10] MEDS ORDERED: PT OWN MED DRAWER 7, Y5N ONE (10:18)
[2020-03-10] MEDS: TOLNAFTATE 1% CREAM 15 GM TUBE TP SCH ×2 (13:24→21:26)
[2020-03-10] MEDS: MONTELUKAST NA 10 MG TABLET PO SCH (21:25)
[2020-03-10] MEDS: THIAMINE HCL 100 MG TABLET (FP) PO SCH (21:25)
[2020-03-10] MEDS: MELATONIN 5 MG TABLETS PO SCH (21:25)
[2020-03-11] MEDS: CLINDAMYCIN HCL 150 MG CAPSULE (FP) PO SCH ×3 (06:39→21:22)
[2020-03-11] MEDS: PRENATAL VITAMINS W/ FOLIC ACID TABLET (FP) PO SCH (09:52)
[2020-03-11] MEDS: BUPRENORPHINE/NALOXONE 8 MG/2 MG FILM PACKET SL SCH ×2 (09:53→21:23)
[2020-03-11] MEDS: APIXABAN 5 MG TABLET PO SCH ×2 (09:53→21:23)
[2020-03-11] MEDS: BUDESONIDE/FORMETEROL FUMARATE 160/4.5 mcg INHALER IH SCH ×2 (09:55→21:24)
[2020-03-11] MEDS: TOLNAFTATE 1% CREAM 15 GM TUBE TP SCH ×2 (09:55→21:25)
[2020-03-11] MEDS: ALBUTEROL SO4 HFA INHALER IH PRN (09:55)
[2020-03-11] MEDS: AZITHROMYCIN 250 MG TABLET PO SCH (10:10)
[2020-03-11] MEDS ORDERED: PT OWN MED DRAWER 7, Y5N ONE (10:11)
[2020-03-11] MEDS: THIAMINE HCL 100 MG TABLET (FP) PO SCH (21:23)
[2020-03-11] MEDS: MELATONIN 5 MG TABLETS PO SCH (21:23)
[2020-03-11] MEDS: MONTELUKAST NA 10 MG TABLET PO SCH (21:23)
[2020-03-12] MEDS: ACETAMINOPHEN 325 MG TABLET (FP) PO PRN (03:46)
[2020-03-12] MEDS: CLINDAMYCIN HCL 150 MG CAPSULE (FP) PO SCH ×3 (06:24→21:43)
[2020-03-12] MEDS: APIXABAN 5 MG TABLET PO SCH ×2 (09:36→21:44)
[2020-03-12] MEDS: BUDESONIDE/FORMETEROL FUMARATE 160/4.5 mcg INHALER IH SCH ×2 (09:36→21:45)
[2020-03-12] MEDS: BUPRENORPHINE/NALOXONE 8 MG/2 MG FILM PACKET SL SCH ×2 (09:36→21:44)
[2020-03-12] MEDS: PRENATAL VITAMINS W/ FOLIC ACID TABLET (FP) PO SCH (09:36)
[2020-03-12] MEDS: TOLNAFTATE 1% CREAM 15 GM TUBE TP SCH ×2 (09:36→21:44)
[2020-03-12] MEDS: AZITHROMYCIN 250 MG TABLET PO SCH (09:37)
[2020-03-12] MEDS: THIAMINE HCL 100 MG TABLET (FP) PO SCH (21:43)
[2020-03-12] MEDS: MELATONIN 5 MG TABLETS PO SCH (21:43)
[2020-03-12] MEDS: MONTELUKAST NA 10 MG TABLET PO SCH (21:44)
[2020-03-13] MEDS: CLINDAMYCIN HCL 150 MG CAPSULE (FP) PO SCH ×3 (06:51→21:13)
[2020-03-13] MEDS: PRENATAL VITAMINS W/ FOLIC ACID TABLET (FP) PO SCH (10:17)
[2020-03-13] MEDS: APIXABAN 5 MG TABLET PO SCH ×2 (10:17→21:14)
[2020-03-13] MEDS: BUPRENORPHINE/NALOXONE 8 MG/2 MG FILM PACKET SL SCH ×2 (10:17→21:17)
[2020-03-13] MEDS: ALBUTEROL SO4 HFA INHALER IH PRN (10:18)
[2020-03-13] MEDS: BUDESONIDE/FORMETEROL FUMARATE 160/4.5 mcg INHALER IH SCH ×2 (10:18→21:18)
[2020-03-13] MEDS: TOLNAFTATE 1% CREAM 15 GM TUBE TP SCH ×2 (10:19→21:18)
[2020-03-13] MEDS ORDERED: cloNIDine HCL 0.1 MG TABLET PO PRN (14:34)
[2020-03-13] MEDS: MELATONIN 5 MG TABLETS PO SCH (21:14)
[2020-03-13] MEDS: MONTELUKAST NA 10 MG TABLET PO SCH (21:14)
[2020-03-13] MEDS: THIAMINE HCL 100 MG TABLET (FP) PO SCH (21:14)
[2020-03-14] MEDS: CLINDAMYCIN HCL 150 MG CAPSULE (FP) PO SCH ×3 (06:24→21:26)
[2020-03-14] MEDS: BUDESONIDE/FORMETEROL FUMARATE 160/4.5 mcg INHALER IH SCH ×2 (10:04→21:24)
[2020-03-14] MEDS: PRENATAL VITAMINS W/ FOLIC ACID TABLET (FP) PO SCH (10:04)
[2020-03-14] MEDS: BUPRENORPHINE/NALOXONE 8 MG/2 MG FILM PACKET SL SCH ×2 (10:04→21:26)
[2020-03-14] MEDS: APIXABAN 5 MG TABLET PO SCH ×2 (10:04→21:24)
[2020-03-14] MEDS: TOLNAFTATE 1% CREAM 15 GM TUBE TP SCH ×2 (10:05→21:24)
[2020-03-14] MEDS: ALBUTEROL SO4 HFA INHALER IH PRN (10:05)
[2020-03-14] MEDS: MONTELUKAST NA 10 MG TABLET PO SCH (21:24)
[2020-03-14] MEDS: MELATONIN 5 MG TABLETS PO SCH (21:24)
[2020-03-14] MEDS: THIAMINE HCL 100 MG TABLET (FP) PO SCH (21:24)
[2020-03-15] MEDS: hydrOXYzine PAMOATE 25 MG CAPSULE (FP) PO PRN (00:29)
[2020-03-15] MEDS: CLINDAMYCIN HCL 150 MG CAPSULE (FP) PO SCH ×3 (06:27→21:12)
[2020-03-15] MEDS ORDERED: ONDANSETRON *ODT* 4 MG TABLET SL PRN (08:44)
[2020-03-15] MEDS ORDERED: TRIMETHOBENZAMIDE HCL 200MG/2ML INJ IM ONE (09:11)
[2020-03-15] MEDS ORDERED: cloNIDine HCL 0.1 MG TABLET PO PRN (09:13)
[2020-03-15] MEDS: BUPRENORPHINE/NALOXONE 8 MG/2 MG FILM PACKET SL SCH ×3 (09:45→22:15)
[2020-03-15] MEDS: ALBUTEROL SO4 HFA INHALER IH PRN (09:46)
[2020-03-15] MEDS: APIXABAN 5 MG TABLET PO SCH ×2 (10:23→21:12)
[2020-03-15] MEDS: PRENATAL VITAMINS W/ FOLIC ACID TABLET (FP) PO SCH (10:25)
[2020-03-15] MEDS: BUDESONIDE/FORMETEROL FUMARATE 160/4.5 mcg INHALER IH SCH ×2 (10:26→21:15)
[2020-03-15] MEDS: TOLNAFTATE 1% CREAM 15 GM TUBE TP SCH ×2 (10:26→21:15)
[2020-03-15] MEDS: MELATONIN 5 MG TABLETS PO SCH (21:13)
[2020-03-15] MEDS: MONTELUKAST NA 10 MG TABLET PO SCH (21:13)
[2020-03-15] MEDS: THIAMINE HCL 100 MG TABLET (FP) PO SCH (21:13)
[2020-03-16] MEDS: BUPRENORPHINE/NALOXONE 8 MG/2 MG FILM PACKET SL SCH ×3 (06:16→21:42)
[2020-03-16] MEDS: CLINDAMYCIN HCL 150 MG CAPSULE (FP) PO SCH ×3 (06:16→21:41)
[2020-03-16] MEDS: PRENATAL VITAMINS W/ FOLIC ACID TABLET (FP) PO SCH (09:40)
[2020-03-16] MEDS: hydrOXYzine PAMOATE 25 MG CAPSULE (FP) PO PRN (09:40)
[2020-03-16] MEDS: APIXABAN 5 MG TABLET PO SCH ×2 (09:40→21:43)
[2020-03-16] MEDS: TOLNAFTATE 1% CREAM 15 GM TUBE TP SCH ×2 (09:40→21:44)
[2020-03-16] MEDS: ALBUTEROL SO4 HFA INHALER IH PRN (09:41)
[2020-03-16] MEDS: BUDESONIDE/FORMETEROL FUMARATE 160/4.5 mcg INHALER IH SCH ×2 (09:41→21:44)
[2020-03-16] MEDS ORDERED: ONDANSETRON *ODT* 4 MG TABLET SL PRN (14:56)
[2020-03-16] MEDS: MELATONIN 5 MG TABLETS PO SCH (21:43)
[2020-03-16] MEDS: THIAMINE HCL 100 MG TABLET (FP) PO SCH (21:44)
[2020-03-16] MEDS: MONTELUKAST NA 10 MG TABLET PO SCH (21:44)
[2020-03-17] MEDS: BUPRENORPHINE/NALOXONE 8 MG/2 MG FILM PACKET SL SCH (06:34)
[2020-03-17] MEDS: CLINDAMYCIN HCL 150 MG CAPSULE (FP) PO SCH (06:36)
[2020-03-17 06:56] VITALS: BP 138/83; PULSE 76; TEMP 98.1
[2020-03-17] MEDS: APIXABAN 5 MG TABLET PO SCH (09:38)
[2020-03-17] MEDS: PRENATAL VITAMINS W/ FOLIC ACID TABLET (FP) PO SCH (09:38)
[2020-03-17] MEDS: BUDESONIDE/FORMETEROL FUMARATE 160/4.5 mcg INHALER IH SCH (09:38)
[2020-03-17] MEDS: TOLNAFTATE 1% CREAM 15 GM TUBE TP SCH (09:39)
== END 2020-03-17 09:55 | disposition home or self-care (01) | DRG 772 ==
LOC: YASAS 15:32 → Y3W 18:37
PROVIDERS: ADMIT Allergy & Immunology; ATTEND Allergy & Immunology
PROC: HZ42ZZZ Group Counseling for Substance Abuse Treatment, Cognitive-Behavioral (ICD-10-PCS; principal; 2020-03-07)
DX: F11.20 Opioid dependence, uncomplicated (principal); F12.20 Cannabis dependence, uncomplicated; F17.210 Nicotine dependence, cigarettes, uncomplicated; F31.9 Bipolar disorder, unspecified; F41.9 Anxiety disorder, unspecified; E11.9 Type 2 diabetes mellitus without complications; Z79.84 Long term (current) use of oral hypoglycemic drugs; J45.909 Unspecified asthma, uncomplicated; L03.116 Cellulitis of left lower limb; B35.3 Tinea pedis; I25.10 Atherosclerotic heart disease of native coronary artery without angina pectoris; I25.2 Old myocardial infarction; Z86.74 Personal history of sudden cardiac arrest; Z86.711 Personal history of pulmonary embolism; Z79.01 Long term (current) use of anticoagulants; Z86.718 Personal history of other venous thrombosis and embolism; Z98.41 Cataract extraction status, right eye; Z98.42 Cataract extraction status, left eye
CPT/HCPCS: 36415; 80053; 81003; 85027; 85660; 86780; Q0162

== ENCOUNTER 2020-03-08 20:09 | Emergency (ER) | payer OTHER ==
--- NOTE | 2020-03-08 20:25 | PDOC ---
History of Present Illness - General Stated Complaint: LEFT LEG SWOLLEN Time Seen by Provider: 03/08/20 20:25 - History of Present Illness Initial Comments: 03/08/20 21:23 44yo m w/ PMHx OUD, PE, currently admitted to [facility] for detox from heroin+fentanyl presents w/ 3days of hot, painful, swollen, red lower left leg. He has venous stasis at baseline but 3days ago the area got painful, more swollen, red, and hot. There was no obvious cause. It is mostly the anterior inferior aspect of the left lower leg, from the mid calf to the ankle. He describes the pain as throbbing, and it is hard for him to walk on it. Denies cough, fever, SOB, CP, or back pain. Past History - Medical History Allergies/Adverse Reactions: Allergies Allergy/AdvReac Type Severity Reaction Status Date / Time No Known Allergies Allergy Verified 03/08/20 21:45 Home Medications: Ambulatory Orders Albuterol Sulfate Inhaler - [Ventolin HFA Inhaler -] 2 inh PO Q4H PRN #1 inhaler 04/15/18 Budesonide/Formeterol Fumarate [SYMBICORT 160/4.5mcg -] 1 inh PO BID #1 inhaler 04/15/18 Metformin HCl [Glucophage] 500 mg PO BID 14 Days #28 tablet 04/15/18 Montelukast Na [Singulair -] 10 mg PO HS #14 tablet 04/15/18 Naltrexone Microspheres [Vivitrol] 380 mg IM MONTHLY 05/11/19 Sertraline HCl [Zoloft -] 50 mg PO DAILY 05/11/19 Apixaban [Eliquis - Starter Pack (For VTE)] 5 mg PO UTDICT 08/24/19 Buprenorphine/Naloxone [Suboxone 8 mg/2Mg Sl Film -] 1 each SL BID 03/08/20 Clindamycin [Cleocin -] 150 mg PO Q8H #90 capsule 03/08/20 Asthma: Yes Cancer: No Cardiac Disorders: No CVA: No COPD: No CHF: No Diabetes: No GI Disorders: No Disorders: No HTN: No Hypercholesterolemia: No Kidney Stones: No Liver Disease: No Seizures: No Thyroid Disease: No - Surgical History Abdominal Surgery: No Appendectomy: Yes (as child) Cardiac Surgery: No Cholecystectomy: No Lung Surgery: No Neurologic Surgery: No Orthopedic Surgery: No - Reproductive History Testicular Surgery: No - Psycho-Social/Smoking History Smoking History: Current some day smoker Have you smoked in the past 12 months: No Number of Cigarettes Smoked Daily: 1 If you are a former smoker, when did you quit?: 3 years ago 'Breaking Loose' booklet given: 05/11/19 Review of Systems - Review of Systems Able to Perform ROS?: Yes Is the patient limited Kosovan proficient: No Constitutional: No: Chills, Diaphoresis, Fever HEENTM: No: Recent change in vision Integumentary: Yes: Symptoms Reported, Erythema, Lesions, Rash, Other (NUMBNESS OVER L ANTERIOR THIGH) Neurological: No: Symptoms reported Endocrine: No: Symptoms Reported Hematologic/Lymphatic: Yes: Bleeding Diathesis (HX PE, CURRENTLY ON ELIQUIS). No: Symptoms Reported All Other Systems: Reviewed and Negative *Physical Exam - Physical Exam General Appearance: Yes: Nourished, Appropriately Dressed, Obese HEENT: positive: EOMI, JOHN, Normal Voice Neck: positive: Trachea midline, Supple. negative: Tender Respiratory/Chest: positive: Lungs Clear, Normal Breath Sounds. negative: Chest Tender, Respiratory Distress Cardiovascular: positive: Regular Rhythm, Regular Rate Gastrointestinal/Abdominal: positive: Normal Bowel Sounds, Soft, Protuberent Musculoskeletal: positive: Normal Inspection. negative: CVA Tenderness Extremity: positive: Normal Capillary Refill, Pedal Edema, Swelling, Erythema, Inflammation, Other (Left leg warm to the touch relative to the right). negative: Normal Inspection (Left leg: prominent venous stasis evident above ankle joint. 1+ non-pitting edema below the stasis. new erythematous petechiai vs patches w/ satellite lesions [facility]itent[facility] up the deshpande, above the stasis. ) Neurologic: positive: Fully Oriented, Alert, Normal Response, Motor Strength 5/5 ED Treatment Course - LABORATORY CBC & Chemistry Diagram: 03/08/20 21:10 03/08/20 21:10 Discharge - Discharge Information Problems reviewed: Yes Clinical Impression/Diagnosis: Cellulitis, leg Qualifiers: Laterality: left Qualified Code(s): L03.116 - Cellulitis of left lower limb - Admission No - Additional Discharge Information Prescriptions: Clindamycin [Cleocin -] 150 mg PO Q8H #90 capsule - Follow up/Referral Referrals: [facility] [place] [Provider Group] - Patient Discharge Instructions Patient Printed Discharge Instructions: DI for Cellulitis -- Adult, Cellulitis Additional Instructions: Probable Diagnosis is cellulitis of left lower extremity. Come back immediately if you develop a fever, the pain gets worse, or if you develop any new or worrying symptoms. Your disposition: back to [facility] with oral antibiotics. Instructions for [facility]: ANTIBIOTIC: CLINDAMYCIN DOSE: 450MG, THREE TIMES PER DAY COURSE: 10DAYS - Post Discharge Activity
--- NOTE | 2020-03-08 20:30 | PDOC ---
Attending Attestation - Resident Resident Name: Milton Olvera - ED Attending Attestation I have performed the following: I have examined & evaluated the patient, The case was reviewed & discussed with the resident, I agree w/resident's findings & plan - HPI HPI: 03/08/20 21:04 see resident hpi - Physicial Exam PE: 03/08/20 21:04 see resident exam - Medical Decision Making 03/08/20 21:09 44-year-old male with history of opiate abuse with redness and swelling to the left lower extremity Patient currently on Eliquis which was recently restarted due to history of PE We will proceed with lower extremity duplex as patient was not not anticoagulated for at least 10 days In regards to cellulitis we will proceed with labs including blood cultures due to history of opiate abuse and high risk for bacteremia Clindamycin for MRSA coverage Plan for admission to medical service due to failure of outpatient treatment Discharge - Discharge Information Problems reviewed: Yes Clinical Impression/Diagnosis: Cellulitis, leg - Follow up/Referral - Patient Discharge Instructions - Post Discharge Activity
[2020-03-08 20:40] VITALS: TEMP 97.8; BMI 73.0
--- OUTSIDE RECORDS SUMMARY | 2020-03-08 21:05 | XMS ---
:1975 Author Organization [facility] Care Team Providers Name Role Phone SID GRACIA MD Unavailable Unavailable [place], C Unavailable Unavailable [place], C Unavailable Unavailable Robert, C Unavailable Unavailable [place], C Unavailable Unavailable Re-disclosure Warning The records that you are about to access may contain information from federally- assisted alcohol or drug abuse programs. If such information is present, then the following federally mandated warning applies: This information has been disclosed to you from records protected by federal confidentiality rules (42 CFR part 2). The federal rules prohibit you from making any further disclosure of this information unless further disclosure is expressly permitted by the written consent of the person to whom it pertains or as otherwise permitted by 42 CFR part 2. A general authorization for the release of medical or other information is NOT sufficient for this purpose. The Federal rules restrict any use of the information to criminally investigate or prosecute any alcohol or drug abuse patient.The records that you are about to access may contain highly sensitive health information, the redisclosure of which is protected by Article 27-F of the [facility] Public Health law. If you continue you may haveaccess to information: Regarding HIV / AIDS; Provided by facilities licensed or operated by the [facility] Office of Mental Health; or Provided by the [facility] Office for People With Developmental Disabilities. If such information is present, then the following [facility] mandated warning applies: This information has been disclosed to you from confidential records which are protected by state law. State law prohibits you from making any further disclosure of this information without the specific written consent of the person to whom it pertains, or as otherwise permitted by law. Any unauthorized further disclosure in violation of state law may result in a fine or retirement sentence or both. A general authorization for the release of medical or other information is NOT sufficient authorization for further disclosure. Encounters Encounter Providers Location Date Indications Data Source(s ) Inpatient Attender: SID [facility] 08/27/2019 [facility] Sincere thomason SURBNSHANYANAdmitter 04:25:00 PM EDT Hospital : [facility] 09/24/2019 09:41:00 PM EDT Patient discharged. Outpatient [facility] 08/27/2019 10:07:00 AM EDT - [address] [place] [address] 11:03:00 AM EDT Patient discharged. Medications Medication Brand Start Product Dose Route Administrative Pharmacy [facility] Indications Reaction Description Data Name Date Form Instructions Instructions Source(s) Metformin [facility] ORAL complet metFORMI N [facility] hydrochlori MIN 2019 Table ed HCl - 500 MG [facility] 500 [facility] HCl - 12:00: t ORAL [facility] Oral Tablet 500 MG 00 AM ORAL EDT Tablet apixaban 5 [facility] ORAL complet Eliquis - 5 [facility] MG Oral s - 5 2019 Table ed MG ORAL [facility] Tablet MG 12:00: [facility] [Eliquis] ORAL 00 AM Tablet EDT montelukast [facility] ORAL complet Singul air - [facility] 10 MG Oral air 2019 Table ed 10 MG ORAL [facility] Tablet 10 [facility]:00[facility] Tablet EDT apixaban 5 Eliqui ORAL complet Eliquis - 5 [facility] MG Oral s - 5 2019 Table ed MG ORAL [facility] Tablet MG 12:00: [facility] [Eliquis] ORAL 00 AM Tablet EDT Metformin [facility] ORAL complet metFORMI N [facility] hydrochlori MIN 2019 Table ed HCl - 500 MG [facility] 500 MG HCl - 12:00: t [facility] Oral Tablet 500 MG 00 AM ORAL EDT Tablet montelukast [facility] ORAL complet Singul air - [facility] 10 MG Oral air 2019 Table ed 10 MG ORAL [facility] Tablet 10 MG 12:00: [facility] [Singulair] ORAL 00 AM Tablet EDT apixaban 5 Eliqui ORAL complet Eliquis - 5 [facility] MG Oral s - 5 2019 Table ed MG ORAL [facility] Tablet MG 12:00: [facility] [Eliquis] ORAL 00 AM Tablet EDT montelukast Singul ORAL complet Singul air - [facility] 10 MG Oral air - 2019 Table ed 10 MG ORAL [facility] Tablet 10 MG 12:00: [facility] [Singulair] ORAL 00 AM Tablet EDT Metformin metFOR ORAL complet metFORMI N [facility] hydrochlori MIN 2019 Table ed HCl - 500 MG [facility] 500 MG HCl - 12:00: t ORAL [facility] Oral Tablet 500 MG 00 AM ORAL EDT Tablet Insurance Providers Payer name Policy type Policy ID Covered Covered democrat's Policy P clyde / Coverage democrat ID relationship to Romero Inf ormation type romero METRO PLUS [id number] SP [id number] HEALTH PLAN BEACON [id number] SP [id number] METROPLUS BEACON [id number] SP [id number] METROPLUS MMC [id number] Self [id number] METROPLUS/[place] CON SELF PAY 000 Self 000 MEDICAID INP [id number] Self [id number] V REHAB MMC [id number] Self [id number] METROPLUS/[place] CON Results ID Date Data Source [id number] 03/06/2020 01:39:00 PM EST [facility] Name Value Range Interpretation Description Data Sup porting Code Source(s) Document(s ) SARS [facility] Coronavirus 2 RNA Presence Respiratory Specimen KODAK Probe Detection This lab was ordered by [facility] and rep orted by [facility]. ID Date Data Source [id number] 11/04/2019 04:24:00 PM EDT [facility] Name Value Range Interpretation Description Data Sup porting Code Source(s) Document(s ) SARS [facility] coronavirus 2 RNA This lab was ordered by [facility] and reported by [facility]. ID Date Data Source [id number] 08/23/2019 12:39:00 AM EDT [facility] Name Value Range Interpretation Description Data Sup porting Code Source(s) Document(s ) SARS [facility] Coronavirus 2 RNA Presence Respiratory Specimen KODAK Probe Detection This lab was ordered by [facility] a nd reported by [facility]. Procedure Vital Signs ID Date Data Source UNK Name Value Range Interpretation Code Description Data Source(s) Diastolic blood 77 mmHg 77 mmHg [facility] Systolic blood 118 mmHg 118 mmHg [facility] Respiratory rate 16 bpm 16 bpm [facility] Heart rate 75 bpm 75 bpm [facility] Body temperature 96.7 Fahrenheit 96.7 Fahrenhei t [facility] Diastolic blood 77 mmHg 77 mmHg [facility] Systolic blood 118 mmHg 118 mmHg [facility] Respiratory rate 16 bpm 16 bpm [facility] Heart rate 75 bpm 75 bpm [facility] Body temperature 96.7 Fahrenheit 96.7 Fahrenh t [facility] Diastolic blood 77 mmHg 77 mmHg [facility] Systolic blood 141 mmHg 141 mmHg [facility] Respiratory rate 19 bpm 19 bpm [facility] Heart rate 91 bpm 91 bpm [facility] Body temperature 97.7 Fahrenheit 97.7 Fahrenh t [facility] Body temperature 97.4 Fahrenheit 97.4 Fahrenh t [facility] Diastolic blood 86 mmHg 86 mmHg [facility] Systolic blood 148 mmHg 148 mmHg [facility] Respiratory rate 18 bpm 18 bpm [facility] Heart rate 96 bpm 96 bpm [facility] Body temperature 97.7 Fahrenheit 97.7 Fahrenhei t [facility] Body temperature 96.5 Fahrenheit 96.5 Fahrenhei t [facility] Diastolic blood 59 mmHg 59 mmHg [facility] Systolic blood 109 mmHg 109 mmHg [facility] Respiratory rate 18 bpm 18 bpm [facility] Heart rate 67 bpm 67 bpm [facility] Body temperature 97.4 Fahrenheit 97.4 Fahrenhei t [facility] Diastolic blood 59 mmHg 59 mmHg [facility] Systolic blood 109 mmHg 109 mmHg [facility] Respiratory rate 18 bpm 18 bpm [facility] Heart rate 67 bpm 67 bpm [facility] Body temperature 97.4 Fahrenheit 97.4 Fahrenhei t [facility] Body temperature 97.5 Fahrenheit 97.5 Fahrenh t [facility] Diastolic blood 78 mmHg 78 mmHg [facility] Systolic blood 134 mmHg 134 mmHg [facility] Respiratory rate 18 bpm 18 bpm [facility] Heart rate 68 bpm 68 bpm [facility] Body temperature 97.4 Fahrenheit 97.4 Fahrenhei t [facility] Diastolic blood 78 mmHg 78 mmHg [facility] Systolic blood 134 mmHg 134 mmHg [facility] Respiratory rate 18 bpm 18 bpm [facility] Heart rate 68 bpm 68 bpm [facility] Body temperature 97.4 Fahrenheit 97.4 Fahrenhei t [facility] Diastolic blood 78 mmHg 78 mmHg [facility] Systolic blood 129 mmHg 129 mmHg [facility] Respiratory rate 18 bpm 18 bpm [facility] Heart rate 69 bpm 69 bpm [facility] Body temperature 97.2 Fahrenheit 97.2 Fahrenhei t [facility] Diastolic blood 76 mmHg 76 mmHg [facility] Systolic blood 145 mmHg 145 mmHg [facility] Respiratory rate 18 bpm 18 bpm [facility] Heart rate 70 bpm 70 bpm [facility] Body temperature 97.3 Fahrenheit 97.3 Fahrenhei t [facility] Body weight 375 lbs 375 lbs [facility] Body temperature 96.8 Fahrenheit 96.8 Fahrenhei t [facility] Body temperature 97.1 Fahrenheit 97.1 Fahrenhei t [facility] Body temperature 97.3 Fahrenheit 97.3 Fahrenhei t [facility] Body temperature 97.2 Fahrenheit 97.2 Fahrenhei t [facility] Diastolic blood 81 mmHg 81 mmHg [facility] Systolic blood 129 mmHg 129 mmHg [facility] Respiratory rate 18 bpm 18 bpm [facility] Heart rate 66 bpm 66 bpm [facility] Body temperature 97.2 Fahrenheit 97.2 Fahrenhei t [facility] Diastolic blood 68 mmHg 68 mmHg [facility] Systolic blood 124 mmHg 124 mmHg [facility] Respiratory rate 18 bpm 18 bpm [facility] Heart rate 93 bpm 93 bpm [facility] Body temperature 97.2 Fahrenheit 97.2 Fahrenhei t [facility] Body weight 373 lbs 373 lbs [facility] Diastolic blood 70 mmHg 70 mmHg [facility] Systolic blood 120 mmHg 120 mmHg [facility] Respiratory rate 18 bpm 18 bpm [facility] Heart rate 76 bpm 76 bpm [facility] Body temperature 97.6 Fahrenheit 97.6 Fahrenh t [facility] Body temperature 97.0 Fahrenheit 97.0 Fahrenh t [facility] Diastolic blood 82 mmHg 82 mmHg [facility] Systolic blood 128 mmHg 128 mmHg [facility] Respiratory rate 18 bpm 18 bpm [facility] Heart rate 72 bpm 72 bpm [facility] Body temperature 97.2 Fahrenheit 97.2 Fahrenhei t [facility] Body temperature 97.4 Fahrenheit 97.4 Fahrenh t [facility] Heart rate 83 bpm 83 bpm [facility] Body temperature 99.0 Fahrenheit 99.0 Fahrenh t [facility] Diastolic blood 84 mmHg 84 mmHg [facility] Systolic blood 147 mmHg 147 mmHg [facility] Respiratory rate 18 bpm 18 bpm [facility] Diastolic blood 68 mmHg 68 mmHg [facility] Systolic blood 134 mmHg 134 mmHg [facility] Respiratory rate 18 bpm 18 bpm [facility] Heart rate 68 bpm 68 bpm [facility] Body temperature 97.1 Fahrenheit 97.1 Fahrenh t [facility] Body temperature 97.6 Fahrenheit 97.6 hrenh t [facility] Body weight 377 lbs 377 lbs [facility] Body temperature 95.9 Fahrenheit 95.9 Fahrenh t [facility] Diastolic blood 75 mmHg 75 mmHg [facility] Systolic blood 123 mmHg 123 mmHg [facility] Respiratory rate 18 bpm 18 bpm [facility] Heart rate 82 bpm 82 bpm [facility] Body temperature 96.2 Fahrenheit 96.2 hrenh t [facility] ID Date Data Source [id number] 09/30/2019 04:45:03 PM EDT [facility] Name Value Range Interpretation Code Description Data Source(s) Body weight Measured 375 lb 375 lb [facility] Body weight Measured 373 lb 373 lb [facility] Body weight Measured 377 lb 377 lb [facility] ID Date Data Source [id number] 08/30/2019 11:03:49 AM EDT [facility] Name Value Range Interpretation Code Description Data Source(s) Body weight Measured 377 lb 377 lb [facility]
[2020-03-08] MEDS ORDERED: CLINDAMYCIN 600MG PREMIX IVPB 600 MG/50 ML BAG IVPB ONE ×2 (21:10→21:40)
[2020-03-08 21:46] LABS: BASO % 0.5 % (0-2.0); EOS % 2.4 % (0-4.5); HEMATOCRIT 34.7 % (35.4-49); LYMPH % 22.8 % (8-40); MCH 25.8 pg (25.7-33.7); MCHC 31.7 g/dl (32.0-35.9); MEAN CELL VOLUME 81.4 fl (80-96); MEAN PLT VOLUME 10.1 fl (7.5-11.1); MONO % 7.9 % (3.8-10.2); NEUT % 66.4 % (42.8-82.8); PLATELET COUNT 131 K/MM3 (134-434); RBC 4.27 M/mm3 (4.00-5.60); RDW 15.6 % (11.9-15.9); WHITE BLOOD COUNT 7.6 K/mm3 (4.0-10.0)
[2020-03-08 21:53] LABS: CHLORIDE 100 mmol/L (98-107); POTASSIUM 4.3 mmol/L (3.5-5.1); SODIUM 135 mmol/L (136-145)
[2020-03-08 21:55] LABS: CALCIUM 8.7 mg/dL (8.5-10.1)
[2020-03-08 21:56] LABS: ALBUMIN 3.2 g/dl (3.4-5.0); ANION GAP 6 MMOL/L (8-16); BLOOD UREA NITROGEN 10.2 mg/dL (7-18); CO2 29 mmol/L (21-32); GLUCOSE,RANDOM 100 mg/dL (74-106)
[2020-03-08 21:59] LABS: INR 1.22 (0.83-1.09); PROTHROMBIN TIME (PATIENT) 14.7 SEC (9.7-13.0); SGOT/AST 26 U/L (15-37); SGPT/ALT 29 U/L (13-61)
[2020-03-08 22:00] LABS: BILIRUBIN,TOTAL 0.4 mg/dL (0.2-1)
[2020-03-08 22:01] LABS: ALK PHOS 76 U/L (45-117)
[2020-03-08 22:04] LABS: N-TERMINAL BNP 240.7 pg/ml (5-125)
[2020-03-09] MEDS ORDERED: ACETAMINOPHEN 325 MG TABLET (FP) PO ONE (00:49)
[2020-03-09] MEDS ORDERED: ACETAMINOPHEN 325 MG TABLET (FP) ONE (00:51)
[2020-03-09 01:02] VITALS: BP 128/62; PULSE 72
--- NOTE | 2020-03-09 11:48 | EKG ---
Test Reason : Blood Pressure : / mmHG Vent. Rate : 065 BPM Atrial Rate : 065 BPM P-R Int : 162 ms QRS Dur : 096 ms QT Int : 416 ms P-R-T Axes : 020 002 012 degrees QTc Int : 432 ms NORMAL SINUS RHYTHM SEPTAL INFARCT , AGE UNDETERMINED ABNORMAL ECG WHEN COMPARED WITH ECG OF 12-MAY-2019 06:48, SEPTAL INFARCT IS NOW PRESENT NONSPECIFIC T WAVE ABNORMALITY NOW EVIDENT IN ANTERIOR LEADS QT HAS SHORTENED Confirmed by CAROL MOORE, SON ([id number]) on 03/09/2020 11:48:26 AM Referred By: Confirmed By:SON MEDINA MD
--- NOTE | 2020-03-09 13:57 | CONSULT ---
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 This is one of multiple admissions for patient. Patient admitted to for opiod dependence. Substance Abuse History: Smoking History. Smoking history: Current some day smoker. Have you smoked in the past 12 months: No. Aproximately how many cigarettes per day: 1. If you are a former smoker, when did you quit?: 3 years ago. - Alcohol/Substance Use. Hx Alcohol Use: Yes (drinking socially). History of Substance Use: reports: Heroin Medical History: Asthma, Cataract Extraction, Appendectomy Psychiatric History: Mr. Lincoln reports history of three psychiatric hospitalizations all at [facility]. States that his most recent psychiatric hospitalization was last year due to depressed mood secondary to substance abuse. He reports past diagnosis of depression and past treatment with zoloft. No reported history of suicide attempt. Patient states that he is currently receiving treatment at the [facility] and receives the vivitrol injection and was at one time receiving zoloft but medication was discontinued. At present patient reports stable mood. Physical/Sexual Abuse/Trauma History: denies. Mental Status Exam - Mental Status Exam Alert and Oriented to: Time, Place, Person Cognitive Function: Good Patient Appearance: Well Groomed Mood: Hopeful Affect: Appropriate Patient Behavior: Appropriate, Cooperative Speech Pattern: Appropriate Voice Loudness: Normal Thought Process: Intact, Goal Oriented Thought Disorder: Not Present Hallucinations: Denies Suicidal Ideation: Denies Homicidal Ideation: Denies Insight/Judgement: Poor Sleep: Fair Appetite: Fair Muscle strength/Tone: Normal Gait/Station: Normal Psychiatric Findings - Problem List (Percy 1, 2,3) (1) Opioid dependence on agonist therapy Status: Chronic - Initial Treatment Plan Initial Treatment Plan: Psychoeducation provided. Detoxification in progress. Observation.
== END 2020-03-09 01:04 | disposition home or self-care (01) ==
LOC: JER 20:09
DX: L03.116 Cellulitis of left lower limb (principal)
CPT/HCPCS: 36415; 71046-TC-FY; 80053; 82550; 82553; 83880; 84484; 85025; 85610; 85730; 87040; 93005; 93010; 93970-TC; 99285-25